=== PATIENT | female | born 1955 | race Caucasian/White ===

== ENCOUNTER 2021-11-27 05:00 | Inpatient (IN) | payer SELFPAY ==
[2021-11-27] VITALS (11 sets, daily range): BP systolic 127–150; BP diastolic 83–110; PULSE 83–152; RESP 18–20; TEMP 36.3–37.2; O2SAT 94–99
--- NOTE | 2021-11-27 04:59 | HP.PCM.HOS_ITS ---
HPI - General General Date of Admission: 11/27/21 Date of Service: 11/27/21 Chief Complaint: Elevated troponin HPI Narrative SIMI JARAMILLO, is a 66 F who presents from [place] [facility] with elevated troponin. Patient has history of COPD and GERD. She has not been vaccinated against COVID-19. She presents with a 2-week history of progressive shortness of breath. She thought it was due to her COPD exacerbation. Patient denied any sick contact. Denied any fever or chills. She admits to some chest tightness. In [place] ED, her vitals were stable. Initial troponin was 0.09, next troponin is 0.41 CMP was unremarkable, BUN was 16, creatinine 0.63. UA was also unremarkable. EKG showed normal sinus rhythm, no acute ST-T changes. Chest x- ray shows no acute cardiopulmonary process COVID-19 PCR was positive. PFSH Medical History Asthma delivery affecting Chest pain Cholecystectomy planned COPD (chronic obstructive pulmonary disease) Former smoker GERD (gastroesophageal reflux disease) Hypertension Hypertension Knee arthropathy Rheumatoid arthritis Smoker Home Medications Prilosec 11/27/21 [History Last Taken Unknown] albuterol sulfate 11/27/21 [History Last Taken Unknown] lisinopril 11/27/21 [History Last Taken Unknown] naproxen sodium mg 11/27/21 [History Last Taken Unknown] Allergy/AdvReac Type Severity Reaction Status Date / Time codeine Allergy NEEDS Verified 11/27/21 05:13 FOLLOW-UP morphine Allergy NEEDS Verified 11/27/21 05:13 FOLLOW-UP Penicillins Allergy NEEDS Verified 11/27/21 05:13 FOLLOW-UP Sulfa (Sulfonamide Allergy NEEDS Verified 11/27/21 05:13 Antibiotics) FOLLOW-UP Family History (Updated 11/27/21 @ 07:[address] Chrissy Dawn MD) Father CVA (cerebral vascular accident) Mother CVA (cerebral vascular accident) Other Bipolar 1 disorder Diabetes Myocardial infarction Social History (Updated 11/27/21 @ 07:[address] Chrissy Dawn MD) household members: spouse Smoking Status: Former smoker alcohol intake: never substance use type: does not use ROS ROS Narrative Constitutional: Denies: Anorexia, Chills, Fever, Night Sweats, Weight Change Eyes: Denies: Blurred vision, Cataracts, Conjunctivae Inflammation, Pain, Redness, Vision Change HEENT: Denies: Difficulty Hearing, Difficulty Swallowing, Head Aches, Hearing Changes, Sinus Congestion, Sinus Drainage Cardiovascular: Denies: Chest Pain, Orthopnea, Palpitations Respiratory: Denies: Cough, Shortness of breath at rest, Sputum production Gastrointestinal: Denies: Abdominal Pain, Nausea, Vomiting Genitourinary: Denies: Dysuria Musculoskeletal: Denies: Joint Pain, Joint stiffness, Joint swelling, Joint Tenderness Skin: Denies: Rash, Wounds Neurological: Denies: Numbness, Tingling, Focal weakness Physical Exam Narrative Physical exam: General: Alert, Oriented x3, Cooperative, No apparent distress, cachectic, not on oxygen HEENT: Atraumatic Oral: Moist Mucosa Neck: Supple Lungs: Diminished to auscultation Cardiovascular: HS I+II, regular, no murmurs Abdomen: Bowel Sounds Present, Soft, Non Tender Extremities: No edema Results Lab / Micro Data Result Diagrams: 11/27/21 05:40 11/27/21 05:40 Assessment & Plan Assessment/Plan (1) COVID: (2) Elevated troponin: PLAN: 1. Acute non-STEMI, unclear etiology for now EKG shows sinus tachycardia, no acute ST-T changes Patient presents with newly diagnosed Covid Check D-dimer, CTA of the chest to rule out PE Continue on aspirin, statin, carvedilol Continue heparin drip started Discontinue carvedilol, statin, aspirin if cardiac etiology is not suspected 2. COVID-19 infection without hypoxia, newly diagnosed Patient is unvaccinated Symptoms started more than 2 weeks ago Start patient on IV dexamethasone, check Bnpep, lactic acid, D-dimer Albuterol as needed 3. Hypertension, controlled, continue lisinopril 4. GERD, continue PPI 5. DVT prophylaxis?heparin drip Charges/Coding Visit Charges Inpatient E&M: 81223 Init Hosp L3
[2021-11-27] MEDS: Ipratropium/Albuterol Sulfate 3 ML AMPUL.NEB INHALATION (05:55)
[2021-11-27 06:24] LABS: ALB/GLOB Ratio 0.9 RATIO (0.9-2.4); AST(SGOT) 26 U/L (15-37); Alanine Aminotransfer ALT/SGPT 19 U/L (13-56); Albumin, Serum 3.6 g/dL (3.2-5.0); Alkaline Phosphatase 102 U/L (45-117); Anion Gap 7 (5-15); BUN 13 mg/dL (7-18); BUN/Creat Ratio 18.6 RATIO (10-20); Calcium,Total 9.3 mg/dL (8.5-10.1); Chloride 105 mmol/L (98-107); EST Glomerular Filtration Rate 89 mL/min (>60); Est Glom Filt Rate - Afr Amer 108 mL/min (>60); Estimated Creatinine Clearance 69.32 ml/min; Glucose 140 mg/dL (74-106); Potassium 4.1 mmol/L (3.5-5.1); Protein, Total 7.6 g/dL (6.4-8.2); Sodium Level 138 mmol/L (136-145); Troponin-I HS 905 pg/mL (3.0-54.0)
[2021-11-27 06:38] LABS: Absolute Lymphocyte Count 0.74 X10^3/uL (0.83-4.51); Basophil# 0.02 X10^3/uL; Basophil% 0.3 % (0-1); Hematocrit 38.3 % (37-47); Hemoglobin 12.4 g/dL (12.0-15.0); Lymphocyte # 0.74 X10^3/ul (0.83-4.51); Lymphocyte % 12.6 % (19-41); Mean Corp Hgb Conc 32.4 g/dL (32-36); Mean Corpuscular Hgb 25.3 pg (27.0-32.0); Mean Corpuscular Volume 78.2 fL (81-99); Mean Platelet Vol. 11.2 fl (6.2-12.0); Monocyte# 0.06 X10^3/uL; NRBC Flagged by Analyzer 0 % (0-5); Neutrophil # 5.01 X10^3/uL (2.7-7.7); Neutrophil % 85.8 % (47-70); POSITIVE COUNT YES; Platelet Count 284 K/mm3 (150-450); RBC Distribution Width CV 15.6 % (11.6-14.6); RBC Distribution Width SD 43.8 fl (35.1-43.9); White Blood Count 5.9 K/mm3 (4.4-11.0)
[2021-11-27 06:39] LABS: Differential Indicated SCAN CRITERIA MET
[2021-11-27 06:51] LABS: D-Dimer Quantitative (DVT/PE) 0.57 FEU/ug/m (0.27-0.49)
[2021-11-27 06:55] LABS: Differential Comment SCANNED; Platelet Estimate ADEQUATE (ADEQ)
--- NOTE | 2021-11-27 06:59 | CT_ITS ---
STUDY: CTA CHEST REASON FOR EXAM: Female, 66 years old. Chronic shortness of breath Covid hypertension and former smoker RADIATION DOSAGE (If Supplied By Facility): CTDIvol = ( 5.57 ) mGy, DLP = ( 197.74 ) mGycm TECHNIQUE: The examination was performed with the intravenous administration of IV 75mL Isovue-370. Post-processing of the angiographic images was performed, with multiplanar reformation and 3D reconstruction. Individualized dose optimization techniques were used for this CT. COMPARISON: None. FINDINGS: There is no acute or chronic pulmonary embolism. Aorta is of normal caliber. Coronary arteries are moderately to severely diseased with calcified plaque. Lungs are severely emphysematous without focal or regional opacities. There is no pulmonary edema or pleural effusions. Skeleton is intact. The stomach is not fully distended and difficult to evaluate. However, there is probably gastric wall thickening versus food coating. There is a benign right adrenal 2.5 cm adenoma not requiring further diagnostic imaging. There is an exophytic incompletely evaluated right renal upper pole lesion. CT/CTA Chest W/WO Contrast IMPRESSION: 1. No pulmonary embolism. 2. Severe emphysema. 3. Moderate to severe coronary artery disease. 4. Right renal lesion, incompletely characterized, recommend ultrasound for further evaluation. 5. Possible gastric wall thickening. In a high risk patient, such a smoker further investigations are advised to exclude malignancy. Electronically Signed: Erica Zapata MD at 9:52 EST ,
[2021-11-27 07:37] LABS: Cholesterol 183 mg/dL (200); High Density Lipoprotein 58 mg/dL; Triglycerides 65 mg/dL; Troponin-I HS 1098 pg/mL (3.0-54.0); Very Low Density Lipoprotein 13 mg/dL (5-40)
[2021-11-27 07:50] LABS: Partial Thromboplast Time 30.2 Seconds (24.1-36.2)
[2021-11-27 07:57] LABS: Lactic Acid 2.1 mmol/L (0.4-1.9)
[2021-11-27] MEDS: Carvedilol 3.125 MG TABLET PO (08:07)
[2021-11-27] MEDS: Aspirin 81 MG TAB.CHEW PO (08:07)
[2021-11-27] MEDS: Heparin Injection (Vial) 5,000 UNIT/ML VIAL IV ×2 (08:07→23:21)
[2021-11-27] MEDS: dexAMETHasone 10 MG/ML Vial 6 MG IV (08:07)
--- NOTE | 2021-11-27 10:08 | US_ITS ---
STUDY: RENAL ULTRASOUND - COMPLETE REASON FOR EXAM: Female, 66 years old. Evaluate right renal lesion seen on recent CT scan. TECHNIQUE: Ultrasound evaluation of the kidneys was performed with real-time and static william-scale imaging. COMPARISON: Recent CT scan of the abdomen of 2021. FINDINGS: RIGHT KIDNEY: Normal location of the right kidney, which is normal in size. The right kidney measures 9.3 x 4.5 x 3 cm. There is a normal cortex of the right kidney. The renal cortex measures 1 cm. There is a cyst in the upper pole of the right kidney measuring about 2.3 x 2.3 x 2 [address] abnormality. There are no right renal calculi. There is mild hydronephrosis of the right kidney. DISTAL RIGHT URETER: There is non-visualization of the distal right ureter. There is no demonstrated right ureterovesical junction calculus. There is no demonstrated right ureteral jet. LEFT KIDNEY: Normal location of the left kidney, which is normal in size. The left kidney measures 11.1 x 4.4 x 4.5 cm. There is a normal cortex of the left kidney. The renal cortex measures 1.2 cm. There is no left renal mass or cyst. There are no left renal calculi. There is no left hydronephrosis. DISTAL LEFT URETER: There is non-visualization of the distal left ureter. There is no demonstrated left ureterovesical junction calculus. There is no demonstrated left ureteral jet. BLADDER: The distended urinary bladder has a volume of 214 ml. US/Kidney and Bladder IMPRESSION: Cyst in the upper pole of the right kidney appears to be simple and corresponding to the CT abnormality. Mild right hydronephrosis. Electronically Signed: Dada Martinez, at 15:07 EST ,
[2021-11-27 10:42] LABS: Hemoglobin A1c 5.6 % (3.8-5.6)
[2021-11-27 11:02] LABS: BNP,B-Type NATRIURETIC PEPTIDE 117.3 pg/mL (0-100)
--- NOTE | 2021-11-27 11:30 | CASEMGMT ---
RN CM called patient in room for initial transition planning/care coordination assessment. RN JUSTIEC introduced self and role at [facility]. Patient alert and oriented. Patient willing to participate in assessment and is able to answer all questions appropriately. Care providers, pharmacy, and demographics verified. Patient wishes to discharge home, denies need for home health at this time. Patient states she has no further needs or concerns at this time. CM to follow for discharge planning needs that may arise. PCP: Daniel Specialists: none Preferred Pharmacy: [facility] Insurance: none, in the process of signing up for [facility] Prescription Benefit: none Living Will/HPOA: none LNOK: Living Arrangements: Patient lives with in a single story home with 2 steps and railing to enter the home. Transportation: DME/HHC: Patient states she has nebulizer at home. Patient provided with list of DME and would like [employer]. Currently on room air, will monitor for home oxygen, green sheet on chart. Patient denies previous HHC or SNF Disposition Plan: Patient to discharge home with family support and follow-up plans in place. Kaela LAKE, RN, CM
[2021-11-27 11:32] LABS: Reflex Lactate? Y
[2021-11-27 12:48] LABS: Lactic Acid 1.1 mmol/L (0.4-1.9)
[2021-11-27 12:53] LABS: Troponin-I HS 1372 pg/mL (3.0-54.0)
--- NOTE | 2021-11-27 13:00 | PN.HOSP_ITS ---
Hospitalist Note Patient admitted early this morning as a transfer from outside hospital for NSTEMI and further cardiac evaluation. Unfortunately she was found to be COVID- 19 positive on admission. She was nonvaccinated and currently stable on room air. Her oxygen saturations are 95 to 99%. A CTA of her chest was performed and it was negative for pulmonary embolism however showed severe emphysematous changes, moderate to severe coronary artery disease, a right renal lesion for which an ultrasound was recommended and possible gastric wall thickening. Renal ultrasound is pending to further evaluate the right renal lesion. I discussed the case with cardiology and given the fact that she is COVID-19 positive at this time they would like to defer cardiac testing including stress test or left heart cath until she is 14 days out of her acute Covid infection. They recommended that we continue her aspirin, beta-tristan, statin that we have already initiated and add Plavix 75 mg daily. I have restarted her home lisinopril. She also is on a heparin drip which they would like to maintain for the next 24 hours. Patient is currently asymptomatic both with regards to COVID-19 and denies any current chest pain. Per discussion with cardiology if she maintains stability in the next 24 hours we should be able to discharge her home with recommended outpatient follow-up. Patient was not vaccinated for COVID-19. Diagnoses: NSTEMI COPD Possible gastric wall thickening-we will refer for outpatient follow-up with Dr. Kim Right renal lesion Hypertension Hyperlipidemia Tobacco abuse GERD
--- NOTE | 2021-11-27 13:54 | PCM.CONS.C ---
Assessment & Plan Assessment/Plan (1) Elevated troponin: PLAN: This could be type II NV secondary to Covid. However it is reasonable to treat her medically with aspirin, Plavix, beta-tristan, statin and heparin for 24 hours. If she continues to remain asymptomatic then she could potentially be discharged home tomorrow. In about 2 weeks she would benefit from coronary angiography. She can follow-up with cardiology as an outpatient. (2) COVID: HPI Consult Data Date of Consult: 11/27/21 HPI Narrative HPI Narrative: SIMI JARAMILLO, is a 66 F who presents with shortness of breath. She had presented to [facility] and was diagnosed with Covid. She was transferred here because her troponin was elevated. Her troponin upon arrival was around 900 and has gone up to around 1300. Patient denies any chest pain. She has been having shortness of breath for about 2 weeks. Review of systems: All systems reviewed. All else is negative except that in the HPI PFSH Medical History Asthma delivery affecting Chest pain Cholecystectomy planned COPD (chronic obstructive pulmonary disease) Former smoker GERD (gastroesophageal reflux disease) Hypertension Hypertension Knee arthropathy Rheumatoid arthritis Smoker Home Medications Prilosec 20 mg PO/SL DAILY 11/27/21 [History Last Taken Unknown] albuterol sulfate INHALATION Q4H 11/27/21 [History Last Taken Unknown] lisinopril [Zestril] 40 mg PO DAILY 11/27/21 [History Last Taken Unknown] naproxen sodium mg 11/27/21 [History Last Taken Unknown] Allergy/AdvReac Type Severity Reaction Status Date / Time codeine Allergy NEEDS Verified 11/27/21 05:13 FOLLOW-UP morphine Allergy NEEDS Verified 11/27/21 05:13 FOLLOW-UP Penicillins Allergy NEEDS Verified 11/27/21 05:13 FOLLOW-UP Sulfa (Sulfonamide Allergy NEEDS Verified 11/27/21 05:13 Antibiotics) FOLLOW-UP Family History (Updated 11/27/21 @ 07:[address] Chrissy Dawn MD) Father CVA (cerebral vascular accident) Mother CVA (cerebral vascular accident) Other Bipolar 1 disorder Diabetes Myocardial infarction Social History (Updated 11/27/21 @ 07:[address] Chrissy Dawn MD) household members: spouse Smoking Status: Former smoker alcohol intake: never substance use type: does not use Risk Stratification Risk Stratification Applicable: No Objective Data Vital Signs: Vital Signs Temp Pulse Resp BP Pulse Ox 97.3 F L 99 18 144/97 H 95 11/27/21 08:03 11/27/21 08:03 11/27/21 08:03 11/27/21 08:03 11/27/21 08:03 Oxygen Delivery Method Room Air Weight: 120 lb 13.013 oz Body Mass Index (BMI) 20.0 Intake & Output: Intake and Output for Last 24 Hours 11/25/21 11/26/21 11/27/21 23:59 23:59 23:59 Intake Total 12.10.04 Output Total 0 / 0 Balance .10.04 Lab / Micro Data Result Diagrams: 11/27/21 05:40 11/27/21 05:40 Labs: Laboratory Results - last 24 hr 11/27/21 05:40: WBC 5.9, RBC 4.90, Hgb 12.4, Hct 38.3, MCV 78.2 L, MCH 25.3 L, MCHC 32.4, RDW Std Deviation 43.8, RDW Coeff of Hernandez 15.6 H, Plt Count 284, MPV 11.2, Immature Gran % (Auto) 0.300, Neut % (Auto) 85.8 H, Lymph % (Auto) 12.6 L, Bleckley % (Auto) 1.0, Eos % (Auto) 0.0, Baso % (Auto) 0.3, Absolute Neuts (auto) 5.0, Absolute Lymphs (auto) 0.74 L, Nucleated RBC % 0, Differential Comment SCANNED, Platelet Estimate ADEQUATE 11/27/21 05:40: Sodium 138, Potassium 4.1, Chloride 105, Carbon Dioxide 26.0, Anion Gap 7, BUN 13, Creatinine 0.70, Estim Creat Clear Calc 69.32, Est GFR (MDRD) Af Amer 108, Est GFR (MDRD) Non-Af 89, BUN/Creatinine Ratio 18.6, Glucose 140 H, Calcium 9.3, Total Bilirubin 0.30, AST 26, ALT 19, Alkaline Phosphatase 102, Troponin I High Sens 905 H*, Total Protein 7.6, Albumin 3.6, Globulin 4.0, Albumin/Globulin Ratio 0.9 11/27/21 05:40: Hemoglobin A1c 5.6 11/27/21 05:40: D-Dimer Quant (PE/DVT) 0.57 H* 11/27/21 05:40: B-Natriuretic Peptide 117.3 H 11/27/21 06:50: Troponin I High Sens 1098 H*, Triglycerides 65, Cholesterol 183, LDL Cholesterol 112, VLDL Cholesterol 13, HDL Cholesterol 58 11/27/21 06:55: Lactic Acid 2.1 H* 11/27/21 06:55: APTT 30.2 11/27/21 12:09: Troponin I High Sens 1372 H* 11/27/21 12:09: Lactic Acid 1.1 Micro: Microbiology 11/27/21 08:19 Urine, Random Streptococcus pneumoniae Antigen (M - Final 11/27/21 08:15 Urine, Clean Catch Legionella Antigen - Final Cardiology Labs/Tests 11/27/21 05:40: WBC 5.9, RBC 4.90, Hgb 12.4, Hct 38.3, MCV 78.2 L, MCH 25.3 L, MCHC 32.4, Plt Count 284, MPV 11.2, Immature Gran % (Auto) 0.300, Neut % (Auto) 85.8 H, Lymph % (Auto) 12.6 L, Bleckley % (Auto) 1.0, Eos % (Auto) 0.0, Baso % (Auto) 0.3, Absolute Neuts (auto) 5.0, Nucleated RBC % 0 11/27/21 05:40: Sodium 138, Potassium 4.1, Chloride 105, Carbon Dioxide 26.0, Anion Gap 7, BUN 13, Creatinine 0.70, Est GFR (MDRD) Af Amer 108, Est GFR (MDRD) Non-Af 89, BUN/Creatinine Ratio 18.6, Glucose 140 H, Calcium 9.3, Total Bilirubin 0.30 11/27/21 05:40: Hemoglobin A1c 5.6 11/27/21 05:40: D-Dimer Quant (PE/DVT) 0.57 H* 11/27/21 05:40: B-Natriuretic Peptide 117.3 H 11/27/21 06:50: Triglycerides 65, Cholesterol 183, LDL Cholesterol 112, VLDL Cholesterol 13, HDL Cholesterol 58 11/27/21 06:55: Lactic Acid 2.1 H* 11/27/21 06:55: APTT 30.2 11/27/21 12:09: Lactic Acid 1.1 Rhythm: EKG: ECHO: Stress Test: Cardiac Cath: PCI: CT Surgery: Holter monitor: EPS: PPM: CXR: Chest CT Scan: Radiography Diagnostic Testing: Radiology Impression Chest CTA 11/27/21 06:59 IMPRESSION: 1. No pulmonary embolism. 2. Severe emphysema. 3. Moderate to severe coronary artery disease. 4. Right renal lesion, incompletely characterized, recommend ultrasound for further evaluation. 5. Possible gastric wall thickening. In a high risk patient, such a smoker further investigations are advised to exclude malignancy. Electronically Signed: Erica Zapata MD at 9:52 EST ,
[2021-11-27] MEDS: Lisinopril 40 MG Tablet PO (14:34)
[2021-11-27] MEDS: Pantoprazole Sodium 20 MG Tablet PO (14:34)
[2021-11-27] MEDS: INHALER, ASSIST DEVICES 1 EACH SPACER INHALATION (15:49)
[2021-11-27 16:16] LABS: Partial Thromboplast Time 55.6 Seconds (24.1-36.2)
[2021-11-27] MEDS: Carvedilol 6.25 MG Tablet PO (17:35)
[2021-11-27] MEDS: Atorvastatin Calcium 40 MG Tablet PO (22:13)
[2021-11-27] MEDS: 0.9% Saline Lock 10 ML Syringe IV (22:16)
[2021-11-27 22:36] LABS: Partial Thromboplast Time 54.3 Seconds (24.1-36.2)
[2021-11-28 03:00] VITALS: PULSE 100
[2021-11-28 04:20] VITALS: BP 135/94; PULSE 84; RESP 18; TEMP 36.6; O2SAT 94
[2021-11-28 04:26] VITALS: O2SAT 94
[2021-11-28 06:32] VITALS: PULSE 76
[2021-11-28 07:07] LABS: Partial Thromboplast Time 67.2 Seconds (24.1-36.2)
[2021-11-28 08:22] VITALS: BP 137/88; PULSE 80; RESP 18; TEMP 36.9; O2SAT 95
[2021-11-28] MEDS: Lisinopril 40 MG Tablet PO (08:23)
[2021-11-28] MEDS: Carvedilol 6.25 MG Tablet PO (08:23)
[2021-11-28] MEDS: Pantoprazole Sodium 20 MG Tablet PO (08:24)
[2021-11-28] MEDS: Clopidogrel Bisulfate 75 MG Tablet PO (08:24)
[2021-11-28] MEDS: dexAMETHasone 10 MG/ML Vial 6 MG IV (08:25)
[2021-11-28] MEDS: Aspirin 81 MG TAB.CHEW PO (08:25)
[2021-11-28] MEDS: INHALER, ASSIST DEVICES 1 EACH SPACER INHALATION (08:26)
--- NOTE | 2021-11-28 12:33 | DS.PCM_ITS ---
Providers Date of Admission: 11/27/21 Primary Care Physician: Dr. Daniele Sanchez MD Consultations 11/27/21 07:02 Consult: Cardiology Routine Consulting Provider: Humphrey Dunn Reason for Consult: Elevated troponin EMERGENT Consult: No MD Notified: Yes Date Notified: 11/27/21 Time Notified: 07:02 Method of Notification: Text Reason For Visit: NSTEMI Diagnosis Discharge Diagnosis (1) Elevated troponin: Status: Acute Code(s): R77.8 - Other specified abnormalities of plasma proteins (2) COVID: Status: Acute Code(s): U07.1 - COVID-19 Medications at Discharge Home Medications Prilosec 20 mg PO/SL DAILY 11/27/21 albuterol sulfate INHALATION Q4H 11/27/21 lisinopril [Zestril] 40 mg PO DAILY 11/27/21 naproxen sodium mg 11/27/21 aspirin 81 mg PO BREAKFAST #30 tab 11/28/21 atorvastatin 40 mg PO QHS #30 tab 11/28/21 carvedilol 6.25 mg PO BIDCM #60 tab 11/28/21 clopidogrel 75 mg PO DAILY #30 tab 11/28/21 dexamethasone [Decadron] 6 mg PO DAILY #8 tab 11/28/21 Hospital Course Operations None Procedures None Summary of Care Provided Minutes Spent on Discharge: 38 Hospital Course: Mrs. Eller is a 66-year-old white female who presented to [place] emergency department with elevated troponin. She has a known history of COPD and GERD and had not been vaccinated against COVID-19. She presented with a 2-week history of progressive shortness of breath and actually thought it was due to a COPD exacerbation. On admission she denied having any sick contacts, any fever or chills, no nausea or diarrhea, no is nausea or dysgeusia and reports she felt fine other than some intermittent chest tightness. In the [place] emergency department her vital signs were stable and her initial troponin was elevated at 0.9 with a repeat to 0.41 the rest of her lab work was unremarkable. An EKG showed normal sinus rhythm is without any ST-T wave changes and her chest x-ray showed no acute cardiopulmonary processes. A rapid Covid test was performed and was found to be positive. She was transferred to this institution given her elevated troponins. High-sensitivity troponins were cycled here and found to be 905, 1098, and having a peak of 1372. She had no ongoing chest pain while she was hospitalized and felt that her respiratory status was stable. She remained on room air during her entire hospitalization with oxygen saturations at 94 to 97%. She was placed on Decadron while admitted given her COVID-19 positivity and initiated on a heparin drip just after transfer. A CTA of her chest was performed and was negative for pulmonary embolism but does show extensive emphysema, coronary artery calcifications, and demonstrated a renal lesion. The renal lesion was further evaluated by a renal ultrasound which showed a simple cyst. She was evaluated by cardiology and they felt that it could possibly be a type II NSTEMI secondary to her Covid infection however with her CT showing coronary calcifications they felt that it was reasonable to medically treat her with aspirin, Plavix, beta-tristan, statin and heparin for 24 hours and discharge her on above outpatient oral therapies with the exclusion of heparin and have continued cardiac follow-up as an outpatient after she had completed quarantine if she remains stable. She was initiated on Hocqr-eea-tiod, atorvastatin, aspirin and Plavix and maintained on her home lisinopril. She had no further chest pain and it was recommended she follow-up after quarantine was completed on 12/06/2021 with cardiology as an outpatient for probable left heart catheterization. The plan of care was reviewed with her and she voiced understanding. She was instructed to call the cardiology office on Monday morning to schedule appointment after she completed quarantine. She was also instructed to follow-up with her primary care physician at that time as well. Her ultrasound of her kidney did show some mild hydronephrosis however the patient has had no urinary symptoms whatsoever and states that she has been urinating normally without difficulty. Her serum creatinine was normal. She was discharged home in stable condition on the above medications in addition to Decadron 6 mg daily to complete a total of 10 days. 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 She is not amenable to vaccination for COVID-19 when she is out of quarantine. Discharge diagnoses: NSTEMI COVID-19 infection Renal cyst Mild hydronephrosis COPD with emphysematous changes on CAT scan Hypertension Hyperlipidemia Physical Exam Const alert, oriented x3, no apparent distress and average body habitus Constitutional Narrative: Upper middle-aged white female who appears much older than stated age, sitting on the edge of the bed, talking in the telephone, appears comfortable nontoxic General Appearance: cooperative, comfortable, well kempt and well developed Orientation / Consciousness: awake Exam Limitations: no limitations HEENT normocephalic, head/scalp atraumatic, hearing grossly normal bilaterally and moist oral mucous membranes HEENT Narrative: Dentures in place, Mallampati 2, no thrush Eyes PERRL, EOMs intact bilaterally and conjunctivae normal Eyes Narrative: No scleral icterus Neck no lymphadenopathy, supple and no JVD Neck Narrative: Trachea mid, no thyroid enlargement Resp normal respiratory effort, no retractions and no use of accessory muscles Resp Narrative: Diffusely diminished with scattered end expiratory wheezes that improved with cough Auscultation: wheezes; Negative for crackles, rales or rhonchi Cardio regular rate, regular rhythm, S1 normal heart sound, S2 normal heart sound, no murmurs, no rub, no gallops, no clicks and no JVD GI normal to inspection, nondistended, normoactive bowel sounds, soft to palpation, non-tender and non-distended Extremity no clubbing, cyanosis or edema Extremity Narrative: 2+ pedal pulses Skin no rashes or lesions noted, no wounds, skin turgor normal and no jaundice Neuro oriented x3, CN's II-XII intact bilaterally, moves all extremities, no focal motor deficits and no sensory deficits noted Sensorium / Orientation: awake and alert Motor Exam: strength 5/5 throughout Psych affect normal Psych Narrative: Very pleasant and jovial Weight / BMI Weight Weight: 54.4 kg Body Mass Index (BMI) 20.0 ABG / Lab / Microbiology Data Result Diagrams: 11/27/21 05:40 11/27/21 05:40 Laboratory: Laboratory Results - last 24 hr 11/27/21 12:09: Troponin I High Sens 1372 H* 11/27/21 12:09: Lactic Acid 1.1 11/27/21 15:45: APTT 55.6 H 11/27/21 21:45: APTT 54.3 H 11/28/21 05:21: APTT 67.2 H Microbiology: Microbiology 11/27/21 08:19 Urine, Random Streptococcus pneumoniae Antigen (M - Final 11/27/21 08:15 Urine, Clean Catch Legionella Antigen - Final Radiography Diagnostic Testing: Radiology Impression Renal Ultrasound 11/27/21 10:08 IMPRESSION: Cyst in the upper pole of the right kidney appears to be simple and corresponding to the CT abnormality. Mild right hydronephrosis. Electronically Signed: Dada Martinez, at 15:07 EST , D/C Instructions Discharge Diet: Low fat / Low cholesterol Return to work on: 12/07/21 Meaningful Use Info Meaningful Use Diagnoses (Choose all that apply): None applicable Discharge Plan Admission Admit Date/Time: 11/27/21 05:00 Primary Reason for Your Visit: Chest Pressure Attending Provider: Stephanie Pete Primary Care Provider: Daniele Sanchez Consulting Providers: Humphrey Dunn Instructions Additional Instructions / Restrictions: 1. Please self quarantine until 12/06/2021 secondary to COVID-19 infection 2. Please call cardiology office on 11/29/2021 for an appointment after quarantine has been completed for further outpatient testing with regards to your heart Discharge Orders/Prescriptions Prescriptions: New aspirin 81 mg Tablet,Chewable 81 mg PO BREAKFAST Qty: 30 RF: 0 atorvastatin 40 mg Tablet 40 mg PO QHS Qty: 30 RF: 0 carvedilol 6.25 mg Tablet 6.25 mg PO BIDCM Qty: 60 RF: 0 clopidogrel 75 mg Tablet 75 mg PO DAILY Qty: 30 RF: 0 dexamethasone [Decadron] 6 mg tablet 6 mg PO DAILY Qty: 8 RF: 0 Continued albuterol sulfate 2.5 mg /3 mL (0.083 %) solution for nebulization inhalation Q4H RF: 0 naproxen sodium 550 mg tablet RF: 0 lisinopril [Zestril] 40 mg tablet 40 mg PO DAILY RF: 0 Prilosec 20 mg PO/SL DAILY RF: 0 Referrals / Follow Up: Humphrey Dunn MD [STAFF PHYSICIAN] - Within 2 Weeks (after 12/06/2021) Daniele Sanchez MD [Primary Care Provider] - Within 2 Weeks Disposition Disposition (needs filled in before D/C Order can be placed): Home, Self Care Charges/Coding Visit Charges Inpatient E&M: 83751 Disch Hosp
== END 2021-11-28 14:42 | disposition home or self-care (01) | DRG 280 ==
PROVIDERS: Specialist; Admitting Provider Internal Medicine; PCP Family Medicine; Visit Provider Internal Medicine
DX: I21.A1 Myocardial infarction type 2 (principal); U07.1 COVID-19; N13.30 Unspecified hydronephrosis; J43.9 Emphysema, unspecified; I25.10 Atherosclerotic heart disease of native coronary artery without angina pectoris; I10 Essential (primary) hypertension; E78.5 Hyperlipidemia, unspecified; K21.9 Gastro-esophageal reflux disease without esophagitis; K31.89 Other diseases of stomach and duodenum; N28.1 Cyst of kidney, acquired; Z79.02 Long term (current) use of antithrombotics/antiplatelets; Z79.899 Other long term (current) drug therapy; Z79.82 Long term (current) use of aspirin; Z87.891 Personal history of nicotine dependence
CPT/HCPCS: 36415; 71275; 76770; 80053; 80061; 83036; 83605; 83880; 84484; 85025; 85379; 85730; 87449; 94640; 97802; Q9967; A4216

== ENCOUNTER 2024-06-23 04:55 | Inpatient (IN) | payer MEDICARE, SELFPAY ==
[2024-06-23] VITALS (7 sets, daily range): BP systolic 116–134; BP diastolic 66–91; PULSE 82–113; RESP 18; TEMP 36.7–36.8; O2SAT 94–100; BMI 23.8
--- NOTE | 2024-06-23 04:43 | HP.PCM.HOS_ITS ---
HPI - General General Date of Admission: 06/23/24 Date of Service: 06/23/24 Chief Complaint: SOB and Wheezing. HPI Narrative SIMI ELLER, is a 69 F with a past medical history of essential hypertension, hyperlipidemia, history of tobacco abuse (quit ~2014); with subsequent asthma/COPD, chronic hypoxic respiratory failure; on 4L NC continuously, CAD; s/p NSTEMI still on BASA (but recently taken off Plavix), listed allergy to Morphine/PCN and Sulfa, history of COVID-19, GERD, RA and OA who presents to [facility] ER complaining of SOB and wheezing. Ms. Eller reports her symptoms began approximately 2 days prior to admission with the gradual-onset of progressively worsening ELIZALDE that progressed to SOB at rest. She also admits to wheezing and congested but nonproductive cough that was not responsive to an increase in her nebulizers and supplemental oxygen. She denies associated fever, chills, nausea, vomiting, diarrhea, chest pain or palpitations. She was then diagnosed with AE COPD with clinical evidence of Gzdqw-fd-Ylgeeyp Respiratory Insufficiency complicated by CT evidence of an ~1.6 cm spiculate lesion in her RLL with repeat imaging recommended in 3-6 months with her ER physician at [facility] contacting me for transfer to this facility due to lack of bed availability there. She was then admitted to the PCU here for ongoing care for a stay that is expected to extend beyond 2 midnights. [facility] Medical History NSTEMI (non-ST elevated myocardial infarction) Elevated troponin COVID Knee arthropathy Cholecystectomy planned delivery affecting Rheumatoid arthritis GERD (gastroesophageal reflux disease) Former smoker Smoker Asthma COPD (chronic obstructive pulmonary disease) Chest pain Hypertension Hypertension Home Medications ?Medication ?Instructions ?Recorded ?Last Taken ?Type albuterol sulfate 2.5 mg/3 mL inhalation Q4H sob 11/27/21 Unknown History (0.083 %) solution for nebulization lisinopril 40 mg tablet (Zestril) 40 mg PO DAILY blood pressure 11/27/21 Unknown History aspirin 81 mg chewable tablet 81 mg PO BREAKFAST #30 tabs 11/28/21 Unknown Rx amlodipine 5 mg tablet 5 mg PO DAILY 01/10/22 Unknown History atorvastatin 40 mg tablet 40 mg PO QHS #30 tabs 01/10/22 Unknown Rx carvedilol 6.25 mg tablet 12.5 mg PO BID 01/10/22 Unknown History clopidogrel 75 mg tablet 75 mg PO DAILY #30 tabs 01/10/22 Unknown Rx esomeprazole magnesium 20 mg 20 mg PO DAILY 01/10/22 Unknown History capsule,delayed release (Nexium 24HR) nitroglycerin 0.4 mg sublingual 0.4 mg sublingual Q5-15M PRN chest 01/10/22 Unknown Rx tablet pain #25 tabs Allergy/AdvReac Type Severity Reaction Status Date / Time codeine Allergy NEEDS Verified 01/10/22 10:43 FOLLOW-UP morphine Allergy NEEDS Verified 01/10/22 10:43 FOLLOW-UP Penicillins Allergy NEEDS Verified 01/10/22 10:43 FOLLOW-UP Sulfa (Sulfonamide Allergy NEEDS Verified 01/10/22 10:43 Antibiotics) FOLLOW-UP Family History Father CVA (cerebral vascular accident) Mother CVA (cerebral vascular accident) Other Bipolar 1 disorder Diabetes Myocardial infarction Social History household members: spouse Smoking Status: Former smoker alcohol intake: never substance use type: does not use ROS ROS Narrative Review of Systems: Constitutional: Patient denies fever or chills. Eyes: Patient denies changes in vision or discharge from eyes. ENT: Patient denies runny nose, sore throat or ear pain. Resp: Patient admits to ELIZALDE that progressed to SOB at rest with wheezing and increasingly frequent with nonproductive cough. CV: Patient denies chest pain, palpitations or heart racing. GI: Patient denies abdominal pain, nausea, vomiting, diarrhea or constipation. : Patient denies dysuria, hematuria or urinary hesitancy/frequency. MSK: Patient denies arthralgias and myalgias. Skin: Patient denies rash, abscess, wounds or jaundice. Neuro: Patient denies headache, paresthesias or focal neurologic weakness. Psych: Patient denies symptoms of uncontrolled depression or anxiety. Allergy: Patient denies lip swelling, tongue swelling or urticaria. Hematology: Patient denies easy bleeding or easy bruisability. Endocrinology: Patient denies polyuria, polydipsia or polyphagia. 14 point ROS otherwise negative except for positives noted above in HPI. Vital Signs Vital Signs Vital Signs: VSS Physical Exam Const alert and oriented x3 Constitutional Narrative: Patient appears chronically ill and dyspneic. General Appearance: cooperative HEENT normocephalic, head/scalp atraumatic, hearing grossly normal bilaterally and moist oral mucous membranes Eyes PERRL and EOMs intact bilaterally Neck no lymphadenopathy and supple Resp Resp Narrative: Decreased breath sounds throughout with diffuse expiratory wheezing. Auscultation: wheezes Cardio regular rate and regular rhythm GI normal to inspection, nondistended, normoactive bowel sounds, soft to palpation, non-tender and non-distended Extremity normal to inspection and full ROM Skin Skin Narrative: Patient has no evidence of rash, abscess or jaundice. Neuro oriented x3, CN's II-XII intact bilaterally, moves all extremities and no focal motor deficits Sensorium / Orientation: awake, alert, oriented to person, oriented to place and oriented to time Speech: speech normal Psych affect normal Results Medical Records Data Attestation: I reviewed the patient's medical records Lab / Micro Data Attestation: I reviewed the patient's lab results. Lab results narrative: WBC:5.9 Hgb:10 Plt: 233 BNP: 188 Assessment & Plan Assessment/Plan (1) COPD exacerbation: (2) Respiratory insufficiency: (3) Hypertension: QUALIFIERS: Hypertension type: unspecified Qualified Code(s): I10 - Essential (primary) hypertension (4) Hyperlipidemia: QUALIFIERS: Hyperlipidemia type: unspecified Qualified Code(s): E78.5 - Hyperlipidemia, unspecified (5) History of CAD (coronary artery disease): PLAN: Plan 1. AE COPD with CT positive for an ~1.6 cm x ~1.4 cm RLL spiculated opacity (previously ~2 cm x ~2 cm) - Admit to PCU. Continue IV Solumedrol and empiric IV Doxycycline plus scheduled and prn nebulizers. Give Tylenol prn pain or fever. Finally, we will consult pulmonology to see this patient on-rounds in the AM for further recommendations with help appreciated in advance. 2. Pxrdk-zp-Xdpcoja Hypoxic Respiratory Insufficiency arising from #1 - Wean additional supplemental oxygen as tolerated. 3. Essential hypertension - Maintain home regimen plus give prn IV Hydralazine for systolic blood pressure > 160 mmHg. 4. Hyperlipidemia - Resume statin as before. 5. CAD; s/p NSTEMI - Continue BASA as previous. 6. Listed allergy to Morphine/PCN and Sulfa - Avoid these classes of agent if possible. 7. History of COVID-19 - Noted. Check viral respiratory panel. 8. GERD - Continue PPI. 9. RA - Chronic and stable with no evidence of acute flare at this time. 10. OA - Give Tylenol prn. 11. DVT prophylaxis - Lovenox 40 mg sq daily plus SCD's. Total time: Approximately 55 minutes. Charges/Coding Visit Charges Inpatient E&M: 62049 Init Hosp L2
[2024-06-23] MEDS: MethylPREDNISolone 125 MG/2 ML Vial 60 MG IV (05:55)
[2024-06-23] MEDS: 0.9% Saline Lock 10 ML Syringe IV ×3 (05:55→20:55)
[2024-06-23] MEDS: Doxycycline 100 MG in Dextrose 5%-Water (250mL Bag) 250 ML 250 MG IV (05:57)
[2024-06-23] MEDS: 0.9% Normal Saline (1000mL) 1,000 ML 70 ML IV ×2 (05:58→20:02)
[2024-06-23 07:28] LABS: Absolute Lymphocyte Count 0.78 X10^3/uL (0.83-4.51); Absolute Neutrophil Count 5.3 X10^3/uL (2.0-7.7); Basophil# 0.01 X10^3/uL; Basophil% 0.2 % (0-1); Hematocrit 32.2 % (37-47); Hemoglobin 9.2 g/dL (12.0-15.0); Lymphocyte # 0.78 X10^3/ul (0.83-4.51); Lymphocyte % 12.6 % (19-41); Mean Corp Hgb Conc 28.6 g/dL (32-36); Mean Corpuscular Volume 80.5 fL (81-99); Mean Platelet Vol. 11.7 fl (6.2-12.0); Monocyte# 0.05 X10^3/uL; Monocyte% 0.8 % (0-10); NRBC Flagged by Analyzer 0 % (0-5); Neutrophil % 85.9 % (47-70); POSITIVE MORPHOLOGY YES; Platelet Count 233 K/mm3 (150-450); RBC Distribution Width CV 23.7 % (11.6-14.6); RBC Distribution Width SD 66.8 fl (35.1-43.9); White Blood Count 6.2 K/mm3 (4.4-11.0)
[2024-06-23 07:35] LABS: Differential Indicated SCAN CRITERIA MET
[2024-06-23 08:06] LABS: AST(SGOT) 17 U/L (15-37); Alanine Aminotransfer ALT/SGPT 18 U/L (13-56); Alkaline Phosphatase 60 U/L (45-117); Anion Gap 6 (5-15); BUN 13 mg/dL (7-18); Calcium,Total 8.7 mg/dL (8.5-10.1); Chloride 101 mmol/L (98-107); Creatinine, Serum 0.43 mg/dL (0.55-1.02); EST Glomerular Filtration Rate 154 mL/min (>60); Est Glom Filt Rate - Afr Amer 186 mL/min (>60); Estimated Creatinine Clearance 55.68 ml/min; Globulin 3.1 g/dL (2.2-4.2); Glucose 221 mg/dL (74-106); Phosphorus 2.5 mg/dL (2.5-4.9); Potassium 3.9 mmol/L (3.5-5.1); Protein, Total 6.1 g/dL (6.4-8.2); Sodium Level 136 mmol/L (136-145); Thyroid Stim Hormone (TSH) 0.576 uIU/mL (0.358-3.740)
--- NOTE | 2024-06-23 08:36 | PCM.HOSP.N ---
Hospitalist Note 69-year-old female was directly admitted from [place] ER for acute exacerbation of shortness of breath for 2 days , chest congestion, cannot bring up phlegm and wheezing. 1. AE COPD with CT positive for an ~1.6 cm x ~1.4 cm RLL spiculated opacity/nodule (previously ~2 cm x ~2 cm) - Admit to PCU. [employer] consulted. Patient is being managed on scheduled bronchodilator, IV Solu-Medrol, Mucinex, incentive spirometry and Pep. She follows Dr. Eleno Crawford in the [place]. She had decided a management planner 2. Mild hypoxia with chronic emphysematous changes, bronchiectasis and pleural-parenchymal thickening: CT chest from [place] ER reviewed. It also shows significant emphysematous changes lower lobe bronchiectasis. Mid biapical pleural-parenchymal thickening. There are 2 stable appearing lesion in right upper lobe and nodule in the left lower lobe less than a centimeter. Patient is on 4 L of oxygen, pulse ox 99%. 3. Essential hypertension - Maintain home regimen plus give prn IV Hydralazine for systolic blood pressure > 160 mmHg. 4. Hyperlipidemia - Resume statin as before. 5. CAD; s/p NSTEMI - Continue BASA as previous. 6. Listed allergy to Morphine/PCN and Sulfa - Avoid these classes of agent if possible. 7. History of COVID-19 - Noted. Check viral respiratory panel. 8. GERD - Continue PPI. 9. RA - Chronic and stable with no evidence of acute flare at this time. 10. OA - Give Tylenol prn. 11. DVT prophylaxis - Lovenox 40 mg sq daily plus SCD's. Laboratory Results 06/23/24 07:00: WBC 6.2, RBC 4.00 L, Hgb 9.2 L, Hct 32.2 L, MCV 80.5 L, MCH 23.0 L, MCHC 28.6 L, RDW Std Deviation 66.8 H, RDW Coeff of Hernandez 23.7 H, Plt Count 233, MPV 11.7, Immature Gran % (Auto) 0.500, Neut % (Auto) 85.9 H, Lymph % (Auto) 12.6 L, [place] % (Auto) 0.8, Eos % (Auto) 0.0, Baso % (Auto) 0.2, Absolute Neuts (auto) 5.3, Absolute Lymphs (auto) 0.78 L, Nucleated RBC % 0, Sodium 136, Potassium 3.9, Chloride 101, Carbon Dioxide 29.0, Anion Gap 6, BUN 13, Creatinine 0.43 L, Estim Creat Clear Calc 55.68, Est GFR (MDRD) Af Amer 186, Est GFR (MDRD) Non-Af 154, BUN/Creatinine Ratio 30.0 H, Glucose 221 H, Calcium 8.7, Phosphorus 2.5, Magnesium 2.0, Total Bilirubin 0.20, AST 17, ALT 18, Alkaline Phosphatase 60, Total Protein 6.1 L, Albumin 3.0 L, Globulin 3.1, Albumin/Globulin Ratio 1.0, TSH 0.576
[2024-06-23] MEDS: Aspirin 81 MG TAB.CHEW PO (09:02)
[2024-06-23] MEDS: Lisinopril 40 MG Tablet PO (09:03)
[2024-06-23] MEDS: Ascorbic Acid 500 MG Tablet 1000 MG PO ×2 (09:03→16:00)
[2024-06-23] MEDS: Carvedilol 12.5 MG Tablet PO ×2 (09:03→16:00)
[2024-06-23] MEDS: amLODIPine 5 MG Tablet PO (09:03)
[2024-06-23] MEDS: Lactobacillis Acidophilus 1 CAP PO ×4 (09:03→20:54)
[2024-06-23] MEDS: Enoxaparin 40 MG/0.4 ML Syringe SC (09:03)
[2024-06-23] MEDS: Pantoprazole Sodium 20 MG Tablet PO (09:04)
[2024-06-23] MEDS: Zinc Sulfate 50 mg zinc (220 mg) ORAL capsule PO (09:04)
[2024-06-23] MEDS: Cholecalciferol (Vit D3) 125 MCG CAPSULE (5,000 UNITS) PO (09:04)
[2024-06-23 09:06] LABS: Anisocytosis 1+
[2024-06-23] MEDS: guaiFENesin/D-Methorphan TAB.SR.12H 2 TABLET PO ×2 (10:15→20:56)
[2024-06-23] MEDS: Ipratropium/Albuterol Sulfate 3 ML AMPUL.NEB INHALATION ×3 (10:25→20:02)
--- NOTE | 2024-06-23 12:19 | PCM.PN.HOSP ---
Reason for Visit Reason for Visit: Diagnoses Hyperlipidemia, unspecified (06/23/24) Essential (primary) hypertension (06/23/24) Chronic obstructive pulmonary disease with (acute) exacerbation (06/23/24) Other abnormalities of breathing (06/23/24) Personal history of other diseases of the circulatory system (06/23/24) Objective Data Objective Data Vital Signs: Vital Signs Temp Pulse Resp BP Pulse Ox O2 Del Method O2 Flow Rate 98.2 F 90 18 116/66 94 Nasal Cannula 3 06/23/24 09:00 06/23/24 10:26 06/23/24 10:26 06/23/24 09:00 06/23/24 10:26 06/23/24 10:06/23/24 10:26 Oxygen Flow Rate (L/min) 3 Oxygen Delivery Method Nasal Cannula Weight: 134 lb 11.239 oz Body Mass Index (BMI) 23.8 Intake & Output: Intake and Output for Last 24 Hours 06/21/24 06/22/24 06/23/24 23:59 23:59 23:59 Intake Total 560 / 560 Balance 560 / 560 Lab / Micro Data 06/23/24 07:00 06/23/24 07:00 Labs: Laboratory Results - last 24 hr 06/23/24 07:00: WBC 6.2, RBC 4.00 L, Hgb 9.2 L, Hct 32.2 L, MCV 80.5 L, MCH 23.0 L, MCHC 28.6 L, RDW Std Deviation 66.8 H, RDW Coeff of Hernandez 23.7 H, Plt Count 233, MPV 11.7, Immature Gran % (Auto) 0.500, Neut % (Auto) 85.9 H, Lymph % (Auto) 12.6 L, [place] % (Auto) 0.8, Eos % (Auto) 0.0, Baso % (Auto) 0.2, Absolute Neuts (auto) 5.3, Absolute Lymphs (auto) 0.78 L, Nucleated RBC % 0, Anisocytosis 1+, Sodium 136, Potassium 3.9, Chloride 101, Carbon Dioxide 29.0, Anion Gap 6, BUN 13, Creatinine 0.43 L, Estim Creat Clear Calc 55.68, Est GFR (MDRD) Af Amer 186, Est GFR (MDRD) Non-Af 154, BUN/Creatinine Ratio 30.0 H, Glucose 221 H, Calcium 8.7, Phosphorus 2.5, Magnesium 2.0, Total Bilirubin 0.20, AST 17, ALT 18, Alkaline Phosphatase 60, Total Protein 6.1 L, Albumin 3.0 L, Globulin 3.1, Albumin/Globulin Ratio 1.0, TSH 0.576 Micro: Microbiology 06/23/24 06:00 Mucosa - Nasopharyngeal Respiratory Panel (PCR) - Final 06/23/24 06:00 Mucosa - Nasopharyngeal Coronavirus COVID-19 PCR - Final Physical Exam Narrative Seen and examined. History of COPD, ex-smoker. Quit 9 years ago. Used to smoke a pack per day. Started at the age of 19. She is still short of breath, wheezing, feeling chest tightness, unable to bring up phlegm. No fever. Physical exam General: Alert, Oriented x3, Cooperative. BMI 23.9 kg/m? HEENT: Atraumatic, PERRLA, EOMI, Normocephalic Oral: No Gingival or Mucosal Lesions/ Ulcerations Neck: Supple, No JVD, Negative Carotid Bruits Chest wall/Lungs: Air entry severely diminished in all lung tapia. Bilateral coarse wheezing and rhonchi. Expiratory phase very short. Cardiovascular: Regular rate, Regular Rhythm, Normal S1, Normal S2, No M/G/R Abdomen: Bowel Sounds Present, Soft, Non Tender, Non-Distended : No dysuria. No renal angle tenderness. No suprapubic tenderness. Extremities: No edema, Capillary Refill Less than 3 Seconds Skin: No rashes, No breakdown Musculoskeletal: No Tenderness to Palpation of Joints or Extremities Neurological: Cranial nerves II-XII grossly intact, DTR 2+/4. No acute focal neurological deficit. Psych/Mental Status: Flat affect. Assessment & Plan Assessment/Plan (1) COPD exacerbation: PLAN: Plan 69-year-old female was directly admitted from [place] ER for acute exacerbation of shortness of breath for 2 days , chest congestion, cannot bring up phlegm and wheezing. 1. AE COPD with CT positive for an ~1.6 cm x ~1.4 cm RLL spiculated opacity/nodule (previously ~2 cm x ~2 cm) - Admit to PCU. Inspector [employer] consulted. Patient is being managed on scheduled bronchodilator, IV Solu-Medrol, Mucinex, incentive spirometry and Pep. She follows Dr. Eleno Crawford in the [facility]. She had decided a certified medical records coder 2. Mild hypoxia with chronic emphysematous changes, bronchiectasis and pleural-parenchymal thickening: CT chest from [place] ER reviewed. It also shows significant emphysematous changes lower lobe bronchiectasis. Mid biapical pleural-parenchymal thickening. There are 2 stable appearing lesion in right upper lobe and nodule in the left lower lobe less than a centimeter. History of chronic cigarette smoking. Quit 9 years ago. Used to smoke a pack per day. Started at the age of 19. Patient is on 4 L of oxygen, pulse ox 99%. 3. Essential hypertension - Maintain home regimen. On amlodipine 5 mg daily. Carvedilol 12.5 mg twice daily. 4. Hyperlipidemia - Resume statin as before. 5. CAD; s/p NSTEMI - Continue BASA as previous. 6. Listed allergy to Morphine/PCN and Sulfa - Avoid these classes of agent if possible. 7. History of COVID-19 - 8. GERD - Continue PPI. 9. RA - Chronic and stable with no evidence of acute flare at this time. 10. OA - Give Tylenol prn. 11. DVT prophylaxis - Lovenox 40 mg sq daily plus SCD's. Laboratory Results 06/23/24 07:00: WBC 6.2, RBC 4.00 L, Hgb 9.2 L, Hct 32.2 L, MCV 80.5 L, MCH 23.0 L, MCHC 28.6 L, RDW Std Deviation 66.8 H, RDW Coeff of Hernandez 23.7 H, Plt Count 233, MPV 11.7, Immature Gran % (Auto) 0.500, Neut % (Auto) 85.9 H, Lymph % (Auto) 12.6 L, [place] % (Auto) 0.8, Eos % (Auto) 0.0, Baso % (Auto) 0.2, Absolute Neuts (auto) 5.3, Absolute Lymphs (auto) 0.78 L, Nucleated RBC % 0, Sodium 136, Potassium 3.9, Chloride 101, Carbon Dioxide 29.0, Anion Gap 6, BUN 13, Creatinine 0.43 L, Estim Creat Clear Calc 55.68, Est GFR (MDRD) Af Amer 186, Est GFR (MDRD) Non-Af 154, BUN/Creatinine Ratio 30.0 H, Glucose 221 H, Calcium 8.7, Phosphorus 2.5, Magnesium 2.0, Total Bilirubin 0.20, AST 17, ALT 18, Alkaline Phosphatase 60, Total Protein 6.1 L, Albumin 3.0 L, Globulin 3.1, Albumin/Globulin Ratio 1.0, TSH 0.576 Charges/Coding Visit Charges Inpatient E&M: 45497 Subs Hosp L2
--- NOTE | 2024-06-23 17:51 | CON.PCM.CC_ITS ---
HPI Consult Data Date of Consult: 06/23/24 HPI Narrative HPI Narrative: Mrs. SIMI JARAMILLO, is a 69 F with a past medical history of essential hypertension, hyperlipidemia, history of tobacco abuse (quit ~2014); with subsequent asthma/COPD, chronic hypoxic respiratory failure; on 4L NC continuously, CAD; s/p NSTEMI still on BASA (but recently taken off Plavix) who comes in for SOB. Patient states that she was recently hospitalized prior to this admission. She has been experiencing SOB and feeling like someone is sitting on her chest. She reportly had a CT nodule ~1.6 cm spiculate lesion in her RLL with repeat imaging recommended in 3-6 months with her ER physician at [facility] Medical History NSTEMI (non-ST elevated myocardial infarction) Elevated troponin COVID Knee arthropathy Cholecystectomy planned delivery affecting Rheumatoid arthritis GERD (gastroesophageal reflux disease) Former smoker Smoker Asthma COPD (chronic obstructive pulmonary disease) Chest pain Hypertension Hypertension Home Medications ?Medication ?Instructions ?Recorded ?Last Taken ?Type albuterol sulfate 2.5 mg/3 mL inhalation Q4H sob 11/27/21 Unknown History (0.083 %) solution for nebulization lisinopril 40 mg tablet (Zestril) 40 mg PO DAILY blood pressure 11/27/21 Unknown History aspirin 81 mg chewable tablet 81 mg PO BREAKFAST #30 tabs 11/28/21 Unknown Rx amlodipine 5 mg tablet 5 mg PO DAILY 01/10/22 Unknown History atorvastatin 40 mg tablet 40 mg PO QHS #30 tabs 01/10/22 Unknown Rx carvedilol 6.25 mg tablet 12.5 mg PO BID 01/10/22 Unknown History clopidogrel 75 mg tablet 75 mg PO DAILY #30 tabs 01/10/22 Unknown Rx esomeprazole magnesium 20 mg 20 mg PO DAILY 01/10/22 Unknown History capsule,delayed release (Nexium 24HR) nitroglycerin 0.4 mg sublingual 0.4 mg sublingual Q5-15M PRN chest 01/10/22 Unknown Rx tablet pain #25 tabs Allergy/AdvReac Type Severity Reaction Status Date / Time codeine Allergy NEEDS Verified 01/10/22 10:43 FOLLOW-UP morphine Allergy NEEDS Verified 01/10/22 10:43 FOLLOW-UP Penicillins Allergy NEEDS Verified 01/10/22 10:43 FOLLOW-UP Sulfa (Sulfonamide Allergy NEEDS Verified 01/10/22 10:43 Antibiotics) FOLLOW-UP Family History Father CVA (cerebral vascular accident) Mother CVA (cerebral vascular accident) Other Bipolar 1 disorder Diabetes Myocardial infarction Social History household members: spouse Smoking Status: Former smoker alcohol intake: never substance use type: does not use ROS Respiratory/Chest Respiratory/Chest: Reports chest tightness and dyspnea Gastrointestinal Gastrointestinal: Denies abdominal pain or diarrhea Genitourinary Genitourinary: Denies difficulty urinating or dysuria Musculoskeletal Musculoskeletal: Denies arthralgias or back pain Objective Data Objective Data Vital Signs: Vital Signs Last response 3 Temperature 36.8 C 06/23/24 15:58 Temperature Source Oral 06/23/24 15:58 Pulse Rate 86 06/23/24 15:58 Respiratory Rate 18 06/23/24 15:58 Respiratory Effort Normal, Non-Labored 06/23/24 14:00 Respiratory Depth Normal 06/23/24 14:00 Respiratory Pattern Normal 06/23/24 15:21 Blood Pressure 128/69 H 06/23/24 15:58 Blood Pressure Mean 88 06/23/24 15:58 Blood Pressure Source Monitor 06/23/24 03:45 Blood Pressure Position Semi-Fowlers 06/23/24 03:45 Blood Pressure Location Left Arm 06/23/24 03:45 Pulse Ox 98 06/23/24 15:58 Oxygen Delivery Method Nasal Cannula 06/23/24 15:58 Oxygen Flow Rate (L/min) 4 06/23/24 15:58 I&O: I&O Last 24 Hours 3 06/22/24 06/23/24 06/23/24 23:59 11:59 23:59 Intake Total 560 / 560 Balance 560 / 560 I&O: Total Stay 3 06/23/24 thru 06/23/24 11:39 Intake Total 560 Balance 560 Current Meds Ordered / Administered: Current meds ordered / Administered 3 Generic Name Dose Route Start Last Admin Trade Name Freq PRN Reason Stop Dose Admin Albuterol/Ipratropium 3 ml 06/23/24 09:30 06/23/24 15:21 Ipratropium/Albuterol Sulfate 3 Ml Ampul.Neb INHALATION 3 ml Q4HWA.RT KERRIE Administration Amlodipine Besylate 5 mg 06/23/24 10:00 06/23/24 09:03 Amlodipine 5 Mg Tablet PO 5 mg DAILY KERRIE Administration Protocol Ascorbic Acid 1,000 mg 06/23/24 08:00 06/23/24 16:00 Ascorbic Acid 500 Mg Tablet PO 1,000 mg BIDCM KERRIE Administration Aspirin 81 mg 06/23/24 08:00 06/23/24 09:02 Aspirin 81 Mg Tab.Chew PO 81 mg BREAKFAST KERRIE Administration Atorvastatin Calcium 40 mg 06/23/24 22:00 Atorvastatin Calcium 40 Mg Tablet PO QHS [facility] Carvedilol 12.5 mg 06/23/24 08:00 06/23/24 16:00 Carvedilol 12.5 Mg Tablet PO 12.5 mg BIDCM [facility] Administration Protocol Cholecalciferol 125 mcg 06/23/24 10:00 06/23/24 09:04 Cholecalciferol (Vit D3) 125 Mcg Capsule (5,000 Units) PO 125 mcg DAILY KERRIE Administration Enoxaparin Sodium 40 mg 06/23/24 10:00 06/23/24 09:03 Enoxaparin 40 Mg/0.4 Ml Syringe SC 40 mg DAILY KERRIE Administration Guaifenesin 2 tablet 06/23/24 10:00 06/23/24 10:15 Guaifenesin/D-Methorphan Tab.Sr.12h PO 2 tablet BID KERRIE Administration Sodium Chloride 1,000 mls @ 70 mls/hr 06/23/24 05:00 06/23/24 05:58 IV 70 mls/hr .[id number] KERRIE Administration Lisinopril 40 mg 06/23/24 10:00 06/23/24 09:03 Lisinopril 40 Mg Tablet PO 40 mg DAILY KERRIE Administration Protocol Melatonin 3 mg 06/23/24 05:07 Melatonin 3 Mg Tablet PO QHS PRN PRN INSOMNIA Methylprednisolone 40 mg 06/23/24 14:00 06/23/24 13:20 Methylprednisolone 40 Mg/Ml Vial IV 40 mg Q8 KERRIE Administration Nitroglycerin 0.4 mg 06/23/24 05:07 Nitroglycerin (Inpatient Use) 0.4 Mg Tab.Subl SL Q5M PRN chest pain Ondansetron HCl 4 mg 06/23/24 05:07 Ondansetron 4 Mg/2 Ml Vial IV Q8H PRN PRN NAUSEA/VOMITING Pantoprazole Sodium 20 mg 06/23/24 10:00 06/23/24 09:04 Pantoprazole Sodium 20 Mg Tablet PO 20 mg DAILY KERRIE Administration Sodium Chloride 10 - 40 ml 06/23/24 04:49 06/23/24 13:20 0.9% Saline Lock 10 Ml Syringe IV 10 ml UD PRN Administration SALINE FLUSH Zinc Sulfate 50 mg 06/23/24 10:00 06/23/24 09:04 Zinc Sulfate 50 Mg Zinc (220 Mg) Oral Capsule PO 50 mg DAILY KERRIE Administration Physical Exam Const alert and oriented x3 HEENT normocephalic and head/scalp atraumatic Eyes PERRL Resp Effort and Inspection: labored and prolonged expiratory phase Auscultation: wheezes Cardio regular rate, regular rhythm and S1 normal heart sound Skin no rashes or lesions noted Neuro oriented x3 and CN's II-XII intact bilaterally Lab / Micro Data 06/23/24 07:00 06/23/24 07:00 Labs: Laboratory Results - last 24 hr 06/23/24 07:00: WBC 6.2, RBC 4.00 L, Hgb 9.2 L, Hct 32.2 L, MCV 80.5 L, MCH 23.0 L, MCHC 28.6 L, RDW Std Deviation 66.8 H, RDW Coeff of Hernandez 23.7 H, Plt Count 233, MPV 11.7, Immature Gran % (Auto) 0.500, Neut % (Auto) 85.9 H, Lymph % (Auto) 12.6 L, Cataño % (Auto) 0.8, Eos % (Auto) 0.0, Baso % (Auto) 0.2, Absolute Neuts (auto) 5.3, Absolute Lymphs (auto) 0.78 L, Nucleated RBC % 0, Anisocytosis 1+, Sodium 136, Potassium 3.9, Chloride 101, Carbon Dioxide 29.0, Anion Gap 6, BUN 13, Creatinine 0.43 L, Estim Creat Clear Calc 55.68, Est GFR (MDRD) Af Amer 186, Est GFR (MDRD) Non-Af 154, BUN/Creatinine Ratio 30.0 H, Glucose 221 H, Calcium 8.7, Phosphorus 2.5, Magnesium 2.0, Total Bilirubin 0.20, AST 17, ALT 18, Alkaline Phosphatase 60, Total Protein 6.1 L, Albumin 3.0 L, Globulin 3.1, Albumin/Globulin Ratio 1.0, TSH 0.576 Micro: Microbiology 06/23/24 06:00 Mucosa - Nasopharyngeal Respiratory Panel (PCR) - Final 06/23/24 06:00 Mucosa - Nasopharyngeal Coronavirus COVID-19 PCR - Final Assessment and Plan . Assessment and plan: AECOPD LLL nodule - cont with steroids and nebs - consider LABA or LAMA to add to her regimen - she is having trouble coughing up sputum - will start levaquin given her exacerbation - for nodule she likely needs a PET scan Critical Care Time: 60 mins The entirety of this encounter was done via Telemedicine
[2024-06-23] MEDS: Atorvastatin Calcium 40 MG Tablet PO (20:54)
[2024-06-24] VITALS (8 sets, daily range): BP systolic 135–157; BP diastolic 74–94; PULSE 74–89; RESP 16–20; TEMP 36.1–36.7; O2SAT 93–100; BMI 25.4
[2024-06-24] MEDS: levoFLOXacin 750 MG Tablet PO (06:20)
[2024-06-24] MEDS: 0.9% Saline Lock 10 ML Syringe IV ×2 (06:21→23:30)
[2024-06-24 06:29] LABS: Absolute Lymphocyte Count 1.27 X10^3/uL (0.83-4.51); Absolute Neutrophil Count 9.7 X10^3/uL (2.0-7.7); Basophil# 0.01 X10^3/uL; Basophil% 0.1 % (0-1); Hematocrit 30.9 % (37-47); Hemoglobin 8.8 g/dL (12.0-15.0); Lymphocyte # 1.27 X10^3/ul (0.83-4.51); Lymphocyte % 10.8 % (19-41); Mean Corp Hgb Conc 28.5 g/dL (32-36); Mean Corpuscular Hgb 23.2 pg (27.0-32.0); Mean Corpuscular Volume 81.3 fL (81-99); Mean Platelet Vol. 11.8 fl (6.2-12.0); Monocyte# 0.68 X10^3/uL; Monocyte% 5.8 % (0-10); NRBC Flagged by Analyzer 0 % (0-5); Neutrophil % 82.6 % (47-70); POSITIVE MORPHOLOGY YES; Platelet Count 228 K/mm3 (150-450); RBC Distribution Width CV 24.5 % (11.6-14.6); RBC Distribution Width SD 69.8 fl (35.1-43.9); White Blood Count 11.7 K/mm3 (4.4-11.0)
[2024-06-24 06:36] LABS: Differential Indicated SCAN CRITERIA MET
[2024-06-24 06:47] LABS: Anion Gap 1 (5-15); BUN 15 mg/dL (7-18); Calcium,Total 8.9 mg/dL (8.5-10.1); Chloride 107 mmol/L (98-107); Creatinine, Serum 0.34 mg/dL (0.55-1.02); EST Glomerular Filtration Rate 203 mL/min (>60); Est Glom Filt Rate - Afr Amer 245 mL/min (>60); Estimated Creatinine Clearance 61.16 ml/min; Glucose 136 mg/dL (74-106); Sodium Level 139 mmol/L (136-145)
[2024-06-24] MEDS: Ipratropium/Albuterol Sulfate 3 ML AMPUL.NEB INHALATION ×4 (07:11→19:15)
[2024-06-24 07:18] LABS: Anisocytosis 2+
[2024-06-24] MEDS: Aspirin 81 MG TAB.CHEW PO (08:37)
[2024-06-24] MEDS: Enoxaparin 40 MG/0.4 ML Syringe SC (08:38)
[2024-06-24] MEDS: Carvedilol 12.5 MG Tablet PO ×2 (08:38→18:10)
[2024-06-24] MEDS: Ascorbic Acid 500 MG Tablet 1000 MG PO ×2 (08:38→18:10)
[2024-06-24] MEDS: Lactobacillis Acidophilus 1 CAP PO ×4 (08:38→21:08)
[2024-06-24] MEDS: Zinc Sulfate 50 mg zinc (220 mg) ORAL capsule PO (08:39)
[2024-06-24] MEDS: guaiFENesin/D-Methorphan TAB.SR.12H 2 TABLET PO ×2 (08:39→21:08)
[2024-06-24] MEDS: Pantoprazole Sodium 20 MG Tablet PO (08:39)
[2024-06-24] MEDS: amLODIPine 5 MG Tablet PO (08:40)
[2024-06-24] MEDS: Cholecalciferol (Vit D3) 125 MCG CAPSULE (5,000 UNITS) PO (08:40)
[2024-06-24] MEDS: Lisinopril 40 MG Tablet PO (08:40)
--- NOTE | 2024-06-24 09:24 | PN.CC_ITS ---
Assessment & Plan Assessment/Plan (1) COPD exacerbation: PLAN: Plan RECOMMENDATIONS: 1. Supplemental oxygen to maintain saturations at or above 90%. 2. Continue bronchodilators and IV steroids. 3. At discharge, recommend transitioning to prednisone 40 mg daily and weaning by 10 mg every 3 days. 4. Continue Levaquin to complete 7 days of therapy. 5. Recommend outpatient pulmonary follow-up within 2 weeks of discharge. 6. Images from CAT scan completed at [place] will need to be pushed through to our system for review. 8. Encourage incentive spirometer use and mobilize patient as tolerated. IMPRESSIONS: 1. COPD with exacerbation Unclear precipitating etiology. The patient reported that she has a history of COPD. Despite this, she stated that it is in fact her kidney doctor that is managing her COPD. This does not make sense to me. I do not have any outside medical records from this patient for review. Therefore, for now, it is reasonable to continue Levaquin to complete 7 days of therapy along with scheduled bronchodilators and steroids. At discharge, I would recommend a slow prednisone taper, as outlined above. The patient is currently maintaining appropriate oxygen saturations on her baseline requirement. Ultimately, the patient should follow-up in the pulmonary medicine clinic within 2 weeks of discharge. 2. Right lower lobe pulmonary nodule According to documentation, the CT imaging from [facility] demonstrated a right lower lobe pulmonary nodule measuring 1.6 cm. I do not have the actual images from that CT scan to review. Ultimately, the patient would benefit from pet imaging following discharge. 3. History of tobacco dependency in remission/hypertension/hyperlipidemia/coronary artery disease Complicates care, management, recovery and prognosis. Continue home medications as indicated. This note was generated with [employer] dictation software. It may contain incorrect words, spelling, and punctuation that were not noted in checking the note before signing. Subjective Subjective The patient was seen and examined at the bedside this morning. Events from the last 24 hours have been reviewed. The patient is currently afebrile, hemodynamically stable and maintaining appropriate oxygen saturations on 3 L/min via nasal cannula. The patient reported that she was previously diagnosed with COPD. However, she stated that it was actually a kidney doctor who is managing her COPD. She does believe that she had pulmonary function studies done a number of years ago in [facility]. She has a remote smoking history, having quit completely 9 years ago. She is currently prescribed Advair and as needed albuterol at her baseline. The patient reported that she has a baseline oxygen requirement of 4 L/min. It appears that she was transferred here from [facility] on June 23 after there was no bed availability noted there. The patient apparently had a CT completed there which demonstrated a 1.6 cm spiculated lesion in the right lower lobe. White count this morning was noted to be 11,000. Chemistry profile was unremarkable. Objective Data Objective Data The patient's most recent lab work, culture data and imaging studies have all been personally reviewed. COVID PCR was negative. Respiratory viral panel was negative. Vital Signs: Vital Signs Temp Pulse Resp BP Pulse Ox O2 Del Method O2 Flow Rate 97.3 F L 87 16 141/91 H 100 Nasal Cannula 4 06/24/24 02:06/24/24 02:21 06/24/24 02:21 06/24/24 02:21 06/24/24 02:06/24/24 02:55 06/24/24 02:55 Oxygen Flow Rate (L/min) 4 Oxygen Delivery Method Nasal Cannula Weight: 144 lb Body Mass Index (BMI) 25.4 Intake & Output: Intake and Output for Last 24 Hours 06/22/24 06/23/24 06/24/24 23:59 23:59 23:59 Intake Total 2044.67 / 2044.67 Balance 2044.67 / 2044.67 Lab / Micro Data Attestation: I reviewed the patient's lab results. 06/24/24 05:54 06/24/24 05:54 Labs: Laboratory Results - last 24 hr 06/24/24 05:54: WBC 11.7 H, RBC 3.80 L, Hgb 8.8 L, Hct 30.9 L, MCV 81.3, MCH 23.2 L, MCHC 28.5 L, RDW Std Deviation 69.8 H, RDW Coeff of Hernandez 24.5 H, Plt Count 228, MPV 11.8, Immature Gran % (Auto) 0.700, Neut % (Auto) 82.6 H, Lymph % (Auto) 10.8 L, Dickens % (Auto) 5.8, Eos % (Auto) 0.0, Baso % (Auto) 0.1, Absolute Neuts (auto) 9.7 H, Absolute Lymphs (auto) 1.27, Nucleated RBC % 0, Anisocytosis 2+, Sodium 139, Potassium 4.0, Chloride 107, Carbon Dioxide 31.0, Anion Gap 1 L, BUN 15, Creatinine 0.34 L, Estim Creat Clear Calc 61.16, Est GFR (MDRD) Af Amer 245, Est GFR (MDRD) Non-Af 203, BUN/Creatinine Ratio 44.0 H, Glucose 136 H, Calcium 8.9 Micro: Microbiology 06/23/24 06:00 Mucosa - Nasopharyngeal Respiratory Panel (PCR) - Final 06/23/24 06:00 Mucosa - Nasopharyngeal Coronavirus COVID-19 PCR - Final Physical Exam Const alert and no apparent distress General Appearance: cooperative HEENT normocephalic, head/scalp atraumatic and moist oral mucous membranes Eyes PERRL, EOMs intact bilaterally and conjunctivae normal Neck supple General: trachea midline Chest inspection of chest normal Resp normal respiratory effort Auscultation: wheezes and diminished lung sounds Cardio regular rate and regular rhythm GI normal to inspection, nondistended, normoactive bowel sounds Extremity no clubbing, cyanosis or edema Skin no rashes or lesions noted Neuro CN's II-XII intact bilaterally, moves all extremities and no focal motor deficits Psych cooperative and affect normal Charges/Coding Visit Charges Inpatient E&M: 93077 Subs Hosp L2
--- NOTE | 2024-06-24 10:56 | CASEMGMT ---
ISAIAH RENDON Assessment: Face to Face with pt for initial transition planning/care coordination assessment. ISAIAH RENDON introduced self and role at [facility], pt voices understanding and consents to assessment. Pt is A&O x4 and answers all questions appropriately at this time. Pt lying in bed in no distress. Care providers, pharmacy, and demographics verified/updated. Strata: 1 Admitting Dx: COPD exacerbation PCP: Daniel Specialists: Reji, [employer]pwood Buyer; Ty, Nursing Faculty. Preferred Pharmacy: [facility]. Insurance: [facility] Prescription Benefit: yes LNOK: Living Arrangements: Pt lives with and 2 sons in a 1 story home with 1 step to enter. ADLs: Pt reports I with ADLs at home. Transportation: Pt reports family drives her and denies concerns with transportation. DME: O2 from [employer], pt states has a portable tank that she can use to go home with. HHC/SNF: Denies Hx of. Pt states no concerns with going home at time of dc. Pt states no further concerns/needs. CM to follow. Advised pt to ask CM if any further question/concerns/needs arise, voices understanding. Pt Goal: Home Plan: Home, follow O2 needs. Dalia COLON CM
--- NOTE | 2024-06-24 14:38 | PCM.PN.HOSP ---
Reason for Visit Reason for Visit: Diagnoses Hyperlipidemia, unspecified (06/23/24) Essential (primary) hypertension (06/23/24) Chronic obstructive pulmonary disease with (acute) exacerbation (06/23/24) Other abnormalities of breathing (06/23/24) Personal history of other diseases of the circulatory system (06/23/24) Objective Data Objective Data Vital Signs: Vital Signs Temp Pulse Resp BP Pulse Ox O2 Del Method O2 Flow Rate 98.0 F 85 20 H 157/94 H 100 Nasal Cannula 3 06/24/24 08:00 06/24/24 10:51 06/24/24 10:51 06/24/24 08:00 06/24/24 08:00 06/24/24 08:00 06/24/24 08:00 Oxygen Flow Rate (L/min) 3 Oxygen Delivery Method Nasal Cannula Weight: 144 lb Body Mass Index (BMI) 25.4 Intake & Output: Intake and Output for Last 24 Hours 06/22/24 06/23/24 06/24/24 23:59 23:59 23:59 Intake Total 2044.67 / 2044.67 1000 / 1000 Balance 2044.67 / 2044.67 1000 / 1000 Lab / Micro Data 06/24/24 05:54 06/24/24 05:54 Labs: Laboratory Results - last 24 hr 06/24/24 05:54: WBC 11.7 H, RBC 3.80 L, Hgb 8.8 L, Hct 30.9 L, MCV 81.3, MCH 23.2 L, MCHC 28.5 L, RDW Std Deviation 69.8 H, RDW Coeff of Hernandez 24.5 H, Plt Count 228, MPV 11.8, Immature Gran % (Auto) 0.700, Neut % (Auto) 82.6 H, Lymph % (Auto) 10.8 L, Owen % (Auto) 5.8, Eos % (Auto) 0.0, Baso % (Auto) 0.1, Absolute Neuts (auto) 9.7 H, Absolute Lymphs (auto) 1.27, Nucleated RBC % 0, Anisocytosis 2+, Sodium 139, Potassium 4.0, Chloride 107, Carbon Dioxide 31.0, Anion Gap 1 L, BUN 15, Creatinine 0.34 L, Estim Creat Clear Calc 61.16, Est GFR (MDRD) Af Amer 245, Est GFR (MDRD) Non-Af 203, BUN/Creatinine Ratio 44.0 H, Glucose 136 H, Calcium 8.9 Micro: Microbiology 06/23/24 06:00 Mucosa - Nasopharyngeal Respiratory Panel (PCR) - Final 06/23/24 06:00 Mucosa - Nasopharyngeal Coronavirus COVID-19 PCR - Final Physical Exam Narrative Seen and examined. Patient is getting normalized and he still very short of breath and wheezing. Looks like in respiratory distress with tachypnea and lingered short of breath during conversation History of COPD, ex-smoker. Quit 9 years ago. Used to smoke a pack per day. Started at the age of 19. Physical exam General: Alert, Oriented x3, Cooperative. BMI 23.9 kg/m? HEENT: Atraumatic, PERRLA, EOMI, Normocephalic Oral: No Gingival or Mucosal Lesions/ Ulcerations Neck: Supple, No JVD, Negative Carotid Bruits Chest wall/Lungs: Air entry severely diminished in all lung tapia. Bilateral coarse wheezing and rhonchi. Expiratory phase very short. Cardiovascular: Regular rate, Regular Rhythm, Normal S1, Normal S2, No M/G/R Abdomen: Bowel Sounds Present, Soft, Non Tender, Non-Distended : No dysuria. No renal angle tenderness. No suprapubic tenderness. Extremities: No edema, Capillary Refill Less than 3 Seconds Skin: No rashes, No breakdown Musculoskeletal: No Tenderness to Palpation of Joints or Extremities Neurological: Cranial nerves II-XII grossly intact, DTR 2+/4. No acute focal neurological deficit. Psych/Mental Status: Flat affect. Assessment & Plan Assessment/Plan (1) COPD exacerbation: PLAN: Plan 69-year-old female was directly admitted from [facility] for acute exacerbation of shortness of breath for 2 days , chest congestion, cannot bring up phlegm and wheezing. 1. AE COPD with CT positive for an ~1.6 cm x ~1.4 cm RLL spiculated opacity/nodule (previously ~2 cm x ~2 cm) - Admit to PCU. Marketing Outreach Coordinator consulted. Patient is being managed on scheduled bronchodilator, IV Solu-Medrol, Mucinex, incentive spirometry and Pep. She follows Dr. Eleno Crawford in the [facility] as her oracle developer. But actually Dr. Eleno Crawford is aircraft engine dismantler 9/16: Patient is still very symptomatic with shortness of breath, tachypnea wheezing and respiratory distress. IV Solu-Medrol frequency increased. Was seen by oracle developer. Will need PET scan after discharge for further evaluation of 1.6 cm pulmonary nodule. 2. Mild hypoxia with chronic emphysematous changes, bronchiectasis and pleural-parenchymal thickening: CT chest from [facility] reviewed. It also shows significant emphysematous changes lower lobe bronchiectasis. Mid biapical pleural-parenchymal thickening. There are 2 stable appearing lesion in right upper lobe and nodule in the left lower lobe less than a centimeter. History of chronic cigarette smoking. Quit 9 years ago. Used to smoke a pack per day. Started at the age of 19. Patient is on 4 L of oxygen, pulse ox 99%. 06/24: On 3 to 4 L of oxygen 3. Essential hypertension - Maintain home regimen. On amlodipine 5 mg daily. Carvedilol 12.5 mg twice daily. 4. Hyperlipidemia - Resume statin as before. 5. CAD; s/p NSTEMI - Continue BASA as previous. 6. Listed allergy to Morphine/PCN and Sulfa - Avoid these classes of agent if possible. 7. History of COVID-19 - 8. GERD - Continue PPI. 9. RA - Chronic and stable with no evidence of acute flare at this time. 10. OA - Give Tylenol prn. 11. DVT prophylaxis - Lovenox 40 mg sq daily plus SCD's. Charges/Coding Visit Charges Inpatient E&M: 74489 Subs Hosp L2
[2024-06-24] MEDS: Benzonatate 100 MG Capsule 200 MG PO ×2 (16:02→21:08)
[2024-06-24] MEDS: Acetaminophen 325 MG Tablet 650 MG PO ×2 (16:02→22:35)
[2024-06-24] MEDS: Sodium Ferric Gluconat/Sucrose 250 MG in 0.9% Normal Saline (250mL Bag) 250 ML 135 MG IV (16:09)
[2024-06-24] MEDS: Atorvastatin Calcium 40 MG Tablet PO (21:08)
[2024-06-25] VITALS (10 sets, daily range): BP systolic 129–147; BP diastolic 7–89; PULSE 71–94; RESP 16–23; TEMP 35.5–36.7; O2SAT 98–100; BMI 25.9
[2024-06-25] MEDS: 0.9% Saline Lock 10 ML Syringe IV (05:29)
[2024-06-25] MEDS: Benzonatate 100 MG Capsule 200 MG PO ×3 (05:29→22:43)
[2024-06-25] MEDS: levoFLOXacin 750 MG Tablet PO (05:29)
[2024-06-25] MEDS: Albuterol 2.5 MG/3 ML VIAL.NEB. INHALATION (05:45)
[2024-06-25 05:53] LABS: Absolute Lymphocyte Count 1.08 X10^3/uL (0.83-4.51); Absolute Neutrophil Count 10.1 X10^3/uL (2.0-7.7); Basophil# 0.01 X10^3/uL; Basophil% 0.1 % (0-1); Hematocrit 32.2 % (37-47); Hemoglobin 9.2 g/dL (12.0-15.0); Lymphocyte # 1.08 X10^3/ul (0.83-4.51); Lymphocyte % 9.2 % (19-41); Mean Corp Hgb Conc 28.6 g/dL (32-36); Mean Corpuscular Hgb 23.3 pg (27.0-32.0); Mean Corpuscular Volume 81.5 fL (81-99); Mean Platelet Vol. 11.5 fl (6.2-12.0); Monocyte# 0.44 X10^3/uL; Monocyte% 3.8 % (0-10); NRBC Flagged by Analyzer 0 % (0-5); Neutrophil # 10.07 X10^3/uL (2.7-7.7); POSITIVE MORPHOLOGY YES; Platelet Count 227 K/mm3 (150-450); RBC Distribution Width CV 24.2 % (11.6-14.6); RBC Distribution Width SD 69.9 fl (35.1-43.9); Red Blood Count 3.95 M/mm3 (4.2-5.4); White Blood Count 11.7 K/mm3 (4.4-11.0)
[2024-06-25 05:54] LABS: Differential Indicated SCAN CRITERIA MET
[2024-06-25 06:20] LABS: Anion Gap 4 (5-15); BUN 17 mg/dL (7-18); BUN/Creat Ratio 39.7 RATIO (10-20); Calcium,Total 9.1 mg/dL (8.5-10.1); Chloride 101 mmol/L (98-107); Creatinine, Serum 0.43 mg/dL (0.55-1.02); EST Glomerular Filtration Rate 156 mL/min (>60); Est Glom Filt Rate - Afr Amer 189 mL/min (>60); Estimated Creatinine Clearance 61.58 ml/min; Glucose 147 mg/dL (74-106); Potassium 3.9 mmol/L (3.5-5.1); Sodium Level 137 mmol/L (136-145)
[2024-06-25] MEDS: Ipratropium/Albuterol Sulfate 3 ML AMPUL.NEB INHALATION ×4 (07:24→19:24)
[2024-06-25 08:33] LABS: Anisocytosis 2+; Differential Comment SCANNED; Macrocytosis 1+; Microcytosis 1+
[2024-06-25] MEDS: Lactobacillis Acidophilus 1 CAP PO ×4 (08:52→22:42)
[2024-06-25] MEDS: Cholecalciferol (Vit D3) 125 MCG CAPSULE (5,000 UNITS) PO (08:52)
[2024-06-25] MEDS: Lisinopril 40 MG Tablet PO (08:52)
[2024-06-25] MEDS: Zinc Sulfate 50 mg zinc (220 mg) ORAL capsule PO (08:52)
[2024-06-25] MEDS: guaiFENesin/D-Methorphan TAB.SR.12H 2 TABLET PO ×2 (08:52→22:43)
[2024-06-25] MEDS: Pantoprazole Sodium 20 MG Tablet PO (08:52)
[2024-06-25] MEDS: Carvedilol 12.5 MG Tablet PO ×2 (08:52→17:45)
[2024-06-25] MEDS: Aspirin 81 MG TAB.CHEW PO (08:53)
[2024-06-25] MEDS: Ascorbic Acid 500 MG Tablet 1000 MG PO ×2 (08:53→17:45)
[2024-06-25] MEDS: amLODIPine 5 MG Tablet PO (08:53)
[2024-06-25] MEDS: Multivitamins,Therapeutic Tablet 1 TABLET PO (08:54)
--- NOTE | 2024-06-25 10:18 | PCM.PN.INT ---
Assessment & Plan Assessment/Plan (1) COPD exacerbation: PLAN: Plan RECOMMENDATIONS: 1. Supplemental oxygen to maintain saturations at or above 90%. 2. Continue bronchodilators and IV steroids. 3. At discharge, recommend transitioning to prednisone 40 mg daily and weaning by 10 mg every 3 days. 4. Continue Levaquin to complete 7 days of therapy. 5. Recommend outpatient pulmonary follow-up within 2 weeks of discharge. 6. Images from CAT scan completed at [facility] will need to be pushed through to our system for review. 7. Encourage incentive spirometer use and mobilize patient as tolerated. 8. Will sign off at this time. Please call with any additional questions. IMPRESSIONS: 1. COPD with exacerbation Unclear precipitating etiology. The patient reported that she has a history of COPD. Despite this, she stated that it is in fact her kidney doctor that is managing her COPD. This does not make sense to me. I do not have any outside medical records from this patient for review. Therefore, for now, it is reasonable to continue Levaquin to complete 7 days of therapy along with scheduled bronchodilators and steroids. At discharge, I would recommend a slow prednisone taper, as outlined above. The patient is currently maintaining appropriate oxygen saturations on her baseline requirement. Ultimately, the patient should follow-up in the pulmonary medicine clinic within 2 weeks of discharge. 2. Right lower lobe pulmonary nodule According to documentation, the CT imaging from [facility] demonstrated a right lower lobe pulmonary nodule measuring 1.6 cm. I do not have the actual images from that CT scan to review. Ultimately, the patient would benefit from pet imaging following discharge. 3. History of tobacco dependency in remission/hypertension/hyperlipidemia/coronary artery disease Complicates care, management, recovery and prognosis. Continue home medications as indicated. This note was generated with [employer] dictation software. It may contain incorrect words, spelling, and punctuation that were not noted in checking the note before signing. Subjective Subjective The patient was seen and examined at the bedside this morning. Events from the last 24 hours have been reviewed. The patient is currently afebrile, hemodynamically stable and maintaining appropriate oxygen saturations on 4 L/min via nasal cannula. Morning labs are stable. No overnight issues were identified. The patient reported that her breathing quality has improved over the last 24 hours. Objective Data Objective Data The patient's most recent lab work, culture data and imaging studies have all been personally reviewed. COVID PCR was negative. Respiratory viral panel was negative. Vital Signs: Vital Signs Temp Pulse Resp BP Pulse Ox O2 Del Method O2 Flow Rate 98.0 F 90 18 141/89 H 100 Nasal Cannula 4 06/25/24 08:45 06/25/24 08:45 06/25/24 08:45 06/25/24 08:45 06/25/24 08:45 06/25/24 09:26 06/25/24 09:26 Oxygen Flow Rate (L/min) 4 Oxygen Delivery Method Nasal Cannula Weight: 146 lb 2.664 oz Body Mass Index (BMI) 25.9 Intake & Output: Intake and Output for Last 24 Hours 06/23/24 06/24/24 06/25/24 23:59 23:59 23:59 Intake Total 2044.67 / 2044.67 1270 / 1270 Balance 2044.67 / 2044.67 1270 / 1270 Lab / Micro Data Attestation: I reviewed the patient's lab results. 06/25/24 05:29 06/25/24 05:29 Labs: Laboratory Results - last 24 hr 06/25/24 05:29: WBC 11.7 H, RBC 3.95 L, Hgb 9.2 L, Hct 32.2 L, MCV 81.5, MCH 23.3 L, MCHC 28.6 L, RDW Std Deviation 69.9 H, RDW Coeff of Hernandez 24.2 H, Plt Count 227, MPV 11.5, Immature Gran % (Auto) 0.900, Neut % (Auto) 86.0 H, Lymph % (Auto) 9.2 L, [place] % (Auto) 3.8, Eos % (Auto) 0.0, Baso % (Auto) 0.1, Absolute Neuts (auto) 10.1 H, Absolute Lymphs (auto) 1.08, Nucleated RBC % 0, Differential Comment SCANNED, Anisocytosis 2+, Microcytosis 1+, Macrocytosis 1+, Sodium 137, Potassium 3.9, Chloride 101, Carbon Dioxide 32.0, Anion Gap 4 L, BUN 17, Creatinine 0.43 L, Estim Creat Clear Calc 61.58, Est GFR (MDRD) Af Amer 189, Est GFR (MDRD) Non-Af 156, BUN/Creatinine Ratio 39.7 H, Glucose 147 H, Calcium 9.1 Micro: Microbiology 06/23/24 06:00 Mucosa - Nasopharyngeal Respiratory Panel (PCR) - Final 06/23/24 06:00 Mucosa - Nasopharyngeal Coronavirus COVID-19 PCR - Final Physical Exam Const alert and no apparent distress General Appearance: cooperative HEENT normocephalic, head/scalp atraumatic and moist oral mucous membranes Eyes PERRL, EOMs intact bilaterally and conjunctivae normal Neck supple General: trachea midline Chest inspection of chest normal Resp normal respiratory effort Auscultation: wheezes and diminished lung sounds Cardio regular rate and regular rhythm GI normal to inspection, nondistended, normoactive bowel sounds Extremity no clubbing, cyanosis or edema Skin no rashes or lesions noted Neuro CN's II-XII intact bilaterally, moves all extremities and no focal motor deficits Psych cooperative and affect normal Charges/Coding Visit Charges Inpatient E&M: 25227 Subs Hosp L2
[2024-06-25] MEDS: Enoxaparin 40 MG/0.4 ML Syringe SC (10:40)
[2024-06-25] MEDS: Ferrous Sulfate 325 MG Tablet PO (11:47)
[2024-06-25] MEDS: Ondansetron 4 MG/2 ML Vial IV (14:12)
--- NOTE | 2024-06-25 15:53 | PCM.PN.HOSP ---
Reason for Visit Reason for Visit: Diagnoses Hyperlipidemia, unspecified (06/23/24) Essential (primary) hypertension (06/23/24) Chronic obstructive pulmonary disease with (acute) exacerbation (06/23/24) Other abnormalities of breathing (06/23/24) Personal history of other diseases of the circulatory system (06/23/24) Objective Data Objective Data Vital Signs: Vital Signs Temp Pulse Resp BP Pulse Ox O2 Del Method O2 Flow Rate 98.1 F 84 18 129/7 H 99 Nasal Cannula 4 06/25/24 14:04 06/25/24 14:04 06/25/24 14:04 06/25/24 14:04 06/25/24 14:04 06/25/24 14:43 06/25/24 14:43 Oxygen Flow Rate (L/min) 4 Oxygen Delivery Method Nasal Cannula Weight: 146 lb 2.664 oz Body Mass Index (BMI) 25.9 Intake & Output: Intake and Output for Last 24 Hours 06/23/24 06/24/24 06/25/24 23:59 23:59 23:59 Intake Total 2044.67 / 2044.67 1270 / 1270 420 / 420 Balance 2044.67 / 2044.67 1270 / 1270 420 / 420 Lab / Micro Data 06/25/24 05:29 06/25/24 05:29 Labs: Laboratory Results - last 24 hr 06/25/24 05:29: WBC 11.7 H, RBC 3.95 L, Hgb 9.2 L, Hct 32.2 L, MCV 81.5, MCH 23.3 L, MCHC 28.6 L, RDW Std Deviation 69.9 H, RDW Coeff of Hernandez 24.2 H, Plt Count 227, MPV 11.5, Immature Gran % (Auto) 0.900, Neut % (Auto) 86.0 H, Lymph % (Auto) 9.2 L, [place] % (Auto) 3.8, Eos % (Auto) 0.0, Baso % (Auto) 0.1, Absolute Neuts (auto) 10.1 H, Absolute Lymphs (auto) 1.08, Nucleated RBC % 0, Differential Comment SCANNED, Anisocytosis 2+, Microcytosis 1+, Macrocytosis 1+, Sodium 137, Potassium 3.9, Chloride 101, Carbon Dioxide 32.0, Anion Gap 4 L, BUN 17, Creatinine 0.43 L, Estim Creat Clear Calc 61.58, Est GFR (MDRD) Af Amer 189, Est GFR (MDRD) Non-Af 156, BUN/Creatinine Ratio 39.7 H, Glucose 147 H, Calcium 9.1 Micro: Microbiology 06/23/24 06:00 Mucosa - Nasopharyngeal Respiratory Panel (PCR) - Final 06/23/24 06:00 Mucosa - Nasopharyngeal Coronavirus COVID-19 PCR - Final Physical Exam Narrative Seen and examined. Patient first time feels better with more comfortable breathing, less wheezing. Not dyspneic at rest. History of COPD, ex-smoker. Quit 9 years ago. Used to smoke a pack per day. Started at the age of 19. Physical exam General: Alert, Oriented x3, Cooperative. BMI 23.9 kg/m? HEENT: Atraumatic, PERRLA, EOMI, Normocephalic Oral: No Gingival or Mucosal Lesions/ Ulcerations Neck: Supple, No JVD, Negative Carotid Bruits Chest wall/Lungs: Air entry diminished in both lungs. Mild bilateral coarse rhonchi and wheezing Cardiovascular: Regular rate, Regular Rhythm, Normal S1, Normal S2, No M/G/R Abdomen: Bowel Sounds Present, Soft, Non Tender, Non-Distended : No dysuria. No renal angle tenderness. No suprapubic tenderness. Extremities: No edema, Capillary Refill Less than 3 Seconds Skin: No rashes, No breakdown Musculoskeletal: No Tenderness to Palpation of Joints or Extremities Neurological: Cranial nerves II-XII grossly intact, DTR 2+/4. No acute focal neurological deficit. Psych/Mental Status: Flat affect. Assessment & Plan Assessment/Plan (1) COPD exacerbation: PLAN: Plan 69-year-old female was directly admitted from [place] [facility] for acute exacerbation of shortness of breath for 2 days , chest congestion, cannot bring up phlegm and wheezing. 1. AE COPD with CT positive for an ~1.6 cm x ~1.4 cm RLL spiculated opacity/nodule (previously ~2 cm x ~2 cm) - Admit to PCU. Commercial Crabber consulted. Patient is being managed on scheduled bronchodilator, IV Solu-Medrol, Mucinex, incentive spirometry and Pep. She follows Dr. Eleno Crawford in the [place] as her harvest field ticketer. But actually Dr. Eleno Crawford is devops 06/24: Patient is still very symptomatic with shortness of breath, tachypnea wheezing and respiratory distress. IV Solu-Medrol frequency increased. Was seen by harvest field ticketer. Will need PET scan after discharge for further evaluation of 1.6 cm pulmonary nodule. 06/25: IV Solu-Medrol frequency changed to every 12 hourly. Continue bronchodilator. Expect discharge tomorrow. Patient is feeling better with nebulization delivery. 2. Mild hypoxia with chronic emphysematous changes, bronchiectasis and pleural-parenchymal thickening: CT chest from [place] reviewed. It also shows significant emphysematous changes lower lobe bronchiectasis. Mid biapical pleural-parenchymal thickening. There are 2 stable appearing lesion in right upper lobe and nodule in the left lower lobe less than a centimeter. History of chronic cigarette smoking. Quit 9 years ago. Used to smoke a pack per day. Started at the age of 19. Patient is on 4 L of oxygen, pulse ox 99%. 06/24: On 3 to 4 L of oxygen 06/25 oxygen requirement 3 to 4 L. 3. Essential hypertension - Maintain home regimen. On amlodipine 5 mg daily. Carvedilol 12.5 mg twice daily. 4. Hyperlipidemia - Resume statin as before. 5. CAD; s/p NSTEMI - Continue BASA as previous. 6. Listed allergy to Morphine/PCN and Sulfa - Avoid these classes of agent if possible. 7. History of COVID-19 - 8. GERD - Continue PPI. 9. RA - Chronic and stable with no evidence of acute flare at this time. 10. OA - Give Tylenol prn. 11. DVT prophylaxis - Lovenox 40 mg sq daily plus SCD's. Charges/Coding Visit Charges Inpatient E&M: 34239 Subs Hosp L2
[2024-06-25] MEDS: Atorvastatin Calcium 40 MG Tablet PO (22:42)
[2024-06-25] MEDS: Acetaminophen 325 MG Tablet 650 MG PO (22:43)
[2024-06-26] VITALS (10 sets, daily range): BP systolic 102–125; BP diastolic 59–69; PULSE 67–93; RESP 16–20; TEMP 35.9–36.9; O2SAT 94–100; BMI 24.7
[2024-06-26] MEDS: levoFLOXacin 750 MG Tablet PO (05:55)
[2024-06-26] MEDS: Benzonatate 100 MG Capsule 200 MG PO ×3 (05:56→21:01)
[2024-06-26] MEDS: 0.9% Saline Lock 10 ML Syringe IV ×2 (05:56→22:31)
[2024-06-26] MEDS: Ipratropium/Albuterol Sulfate 3 ML AMPUL.NEB INHALATION ×5 (06:58→23:55)
[2024-06-26] MEDS: Aspirin 81 MG TAB.CHEW PO (09:42)
[2024-06-26] MEDS: Carvedilol 12.5 MG Tablet PO ×2 (09:42→18:12)
[2024-06-26] MEDS: guaiFENesin/D-Methorphan TAB.SR.12H 2 TABLET PO ×2 (09:42→21:01)
[2024-06-26] MEDS: Pantoprazole Sodium 20 MG Tablet PO (09:42)
[2024-06-26] MEDS: amLODIPine 5 MG Tablet PO (09:42)
[2024-06-26] MEDS: Cholecalciferol (Vit D3) 125 MCG CAPSULE (5,000 UNITS) PO (09:42)
[2024-06-26] MEDS: Ascorbic Acid 500 MG Tablet 1000 MG PO ×2 (09:42→18:12)
[2024-06-26] MEDS: Ferrous Sulfate 325 MG Tablet PO (09:42)
[2024-06-26] MEDS: Zinc Sulfate 50 mg zinc (220 mg) ORAL capsule PO (09:42)
[2024-06-26] MEDS: Lisinopril 40 MG Tablet PO (09:42)
[2024-06-26] MEDS: Lactobacillis Acidophilus 1 CAP PO ×4 (09:42→21:01)
[2024-06-26] MEDS: Multivitamins,Therapeutic Tablet 1 TABLET PO (09:42)
[2024-06-26] MEDS: Enoxaparin 40 MG/0.4 ML Syringe SC (09:42)
--- NOTE | 2024-06-26 15:10 | PCM.PN.HOSP ---
Reason for Visit Reason for Visit: Diagnoses Hyperlipidemia, unspecified (06/23/24) Essential (primary) hypertension (06/23/24) Chronic obstructive pulmonary disease with (acute) exacerbation (06/23/24) Other abnormalities of breathing (06/23/24) Personal history of other diseases of the circulatory system (06/23/24) Objective Data Objective Data Vital Signs: Vital Signs Temp Pulse Resp BP Pulse Ox O2 Del Method O2 Flow Rate 98.0 F 85 18 118/66 100 Nasal Cannula 4 06/26/24 13:58 06/26/24 13:58 06/26/24 13:58 06/26/24 13:58 06/26/24 13:58 06/26/24 13:59 06/26/24 13:58 Oxygen Flow Rate (L/min) 4 Oxygen Delivery Method Nasal Cannula Weight: 139 lb 12.369 oz Body Mass Index (BMI) 24.7 Intake & Output: Intake and Output for Last 24 Hours 06/24/24 06/25/24 06/26/24 23:59 23:59 23:59 Intake Total 1270 / 1270 420 / 920 750 / 750 Balance 1270 / 1270 420 / 920 750 / 750 Lab / Micro Data 06/25/24 05:29 06/25/24 05:29 Micro: Microbiology 06/23/24 06:00 Mucosa - Nasopharyngeal Respiratory Panel (PCR) - Final 06/23/24 06:00 Mucosa - Nasopharyngeal Coronavirus COVID-19 PCR - Final Physical Exam Narrative Seen and examined. Patient was feeling better but today in the morning she feels more wheezing, shortness of breath and dyspnea on exertion. History of COPD, ex-smoker. Quit 9 years ago. Used to smoke a pack per day. Started at the age of 19. Physical exam General: Alert, Oriented x3, Cooperative. BMI 23.9 kg/m? HEENT: Atraumatic, PERRLA, EOMI, Normocephalic Oral: No Gingival or Mucosal Lesions/ Ulcerations Neck: Supple, No JVD, Negative Carotid Bruits Chest wall/Lungs: Air entry diminished in both lungs. Mild bilateral coarse rhonchi and wheezing Cardiovascular: Regular rate, Regular Rhythm, Normal S1, Normal S2, No M/G/R Abdomen: Bowel Sounds Present, Soft, Non Tender, Non-Distended : No dysuria. No renal angle tenderness. No suprapubic tenderness. Extremities: No edema, Capillary Refill Less than 3 Seconds Skin: No rashes, No breakdown Musculoskeletal: No Tenderness to Palpation of Joints or Extremities Neurological: Cranial nerves II-XII grossly intact, DTR 2+/4. No acute focal neurological deficit. Psych/Mental Status: Flat affect. Assessment & Plan Assessment/Plan (1) COPD exacerbation: PLAN: Plan 69-year-old female was directly admitted from [place] [facility] for acute exacerbation of shortness of breath for 2 days , chest congestion, cannot bring up phlegm and wheezing. 1. AE COPD with CT positive for an ~1.6 cm x ~1.4 cm RLL spiculated opacity/nodule (previously ~2 cm x ~2 cm) - Admit to PCU. Electrician Chief consulted. Patient is being managed on scheduled bronchodilator, IV Solu-Medrol, Mucinex, incentive spirometry and Pep. She follows Dr. Eleno Crawford in the [place] as her medical radiation dosimetrist. But actually Dr. Eleno Crawford is consulting project director 06/24: Patient is still very symptomatic with shortness of breath, tachypnea wheezing and respiratory distress. IV Solu-Medrol frequency increased. Was seen by medical radiation dosimetrist. Will need PET scan after discharge for further evaluation of 1.6 cm pulmonary nodule. 06/25: IV Solu-Medrol frequency changed to every 12 hourly. Continue bronchodilator. Patient is feeling better with nebulization delivery. 06/26: Patient was put back on IV Solu-Medrol 40 mg Q6 hourly. Rest seem to continue. 2. Mild hypoxia with chronic emphysematous changes, bronchiectasis and pleural-parenchymal thickening: CT chest from [place] [facility] reviewed. It also shows significant emphysematous changes lower lobe bronchiectasis. Mid biapical pleural-parenchymal thickening. There are 2 stable appearing lesion in right upper lobe and nodule in the left lower lobe less than a centimeter. History of chronic cigarette smoking. Quit 9 years ago. Used to smoke a pack per day. Started at the age of 19. Patient is on 4 L of oxygen, pulse ox 99%. 06/24: On 3 to 4 L of oxygen 06/25 oxygen requirement 3 to 4 L. 06/26: Continues to require 4 L of oxygen. 3. Essential hypertension - Maintain home regimen. On amlodipine 5 mg daily. Carvedilol 12.5 mg twice daily. 4. Hyperlipidemia - Resume statin as before. 5. CAD; s/p NSTEMI - Continue BASA as previous. 6. Listed allergy to Morphine/PCN and Sulfa - Avoid these classes of agent if possible. 7. History of COVID-19 - 8. GERD - Continue PPI. 9. RA - Chronic and stable with no evidence of acute flare at this time. 10. OA - Give Tylenol prn. 11. DVT prophylaxis - Lovenox 40 mg sq daily plus SCD's. Charges/Coding Visit Charges Inpatient E&M: 46917 Subs Hosp L2
[2024-06-26] MEDS: Atorvastatin Calcium 40 MG Tablet PO (21:01)
[2024-06-27] VITALS (7 sets, daily range): BP systolic 104–148; BP diastolic 63–72; PULSE 71–90; RESP 14–20; TEMP 35.9–36.1; O2SAT 90–99; BMI 24.5
[2024-06-27] MEDS: Benzonatate 100 MG Capsule 200 MG PO ×2 (06:00→13:29)
[2024-06-27] MEDS: levoFLOXacin 750 MG Tablet PO (06:01)
[2024-06-27] MEDS: 0.9% Saline Lock 10 ML Syringe IV ×2 (06:01→11:47)
[2024-06-27 06:37] LABS: Absolute Neutrophil Count 7.5 X10^3/uL (2.0-7.7); Basophil# 0.02 X10^3/uL; Basophil% 0.2 % (0-1); Hematocrit 32.9 % (37-47); Hemoglobin 9.6 g/dL (12.0-15.0); Lymphocyte % 12.2 % (19-41); Mean Corp Hgb Conc 29.2 g/dL (32-36); Mean Corpuscular Hgb 23.2 pg (27.0-32.0); Mean Corpuscular Volume 79.7 fL (81-99); Mean Platelet Vol. 11.5 fl (6.2-12.0); Monocyte# 0.71 X10^3/uL; Monocyte% 7.2 % (0-10); NRBC Flagged by Analyzer 0.4 % (0-5); Neutrophil # 7.51 X10^3/uL (2.7-7.7); Neutrophil % 76.2 % (47-70); POSITIVE MORPHOLOGY YES; Platelet Count 235 K/mm3 (150-450); RBC Distribution Width CV 24.5 % (11.6-14.6); RBC Distribution Width SD 67.5 fl (35.1-43.9); Red Blood Count 4.13 M/mm3 (4.2-5.4); White Blood Count 9.9 K/mm3 (4.4-11.0)
[2024-06-27 06:40] LABS: Differential Indicated SCAN CRITERIA MET
[2024-06-27 07:07] LABS: Anion Gap 4 (5-15); BUN 26 mg/dL (7-18); BUN/Creat Ratio 58.7 RATIO (10-20); Calcium,Total 9.3 mg/dL (8.5-10.1); Chloride 97 mmol/L (98-107); Creatinine, Serum 0.44 mg/dL (0.55-1.02); EST Glomerular Filtration Rate 150 mL/min (>60); Est Glom Filt Rate - Afr Amer 181 mL/min (>60); Estimated Creatinine Clearance 60.18 ml/min; Glucose 136 mg/dL (74-106); Sodium Level 135 mmol/L (136-145)
[2024-06-27] MEDS: Ipratropium/Albuterol Sulfate 3 ML AMPUL.NEB INHALATION ×2 (07:16→11:13)
[2024-06-27] MEDS: Carvedilol 12.5 MG Tablet PO (09:20)
[2024-06-27] MEDS: Aspirin 81 MG TAB.CHEW PO (09:20)
[2024-06-27] MEDS: Enoxaparin 40 MG/0.4 ML Syringe SC (09:21)
[2024-06-27] MEDS: Ascorbic Acid 500 MG Tablet 1000 MG PO (09:21)
[2024-06-27] MEDS: Multivitamins,Therapeutic Tablet 1 TABLET PO (09:21)
[2024-06-27] MEDS: Lactobacillis Acidophilus 1 CAP PO ×2 (09:21→13:29)
[2024-06-27] MEDS: Cholecalciferol (Vit D3) 125 MCG CAPSULE (5,000 UNITS) PO (09:22)
[2024-06-27] MEDS: guaiFENesin/D-Methorphan TAB.SR.12H 2 TABLET PO (09:22)
[2024-06-27] MEDS: Pantoprazole Sodium 20 MG Tablet PO (09:22)
[2024-06-27] MEDS: amLODIPine 5 MG Tablet PO (09:22)
[2024-06-27] MEDS: Lisinopril 40 MG Tablet PO (09:23)
[2024-06-27] MEDS: Zinc Sulfate 50 mg zinc (220 mg) ORAL capsule PO (09:23)
[2024-06-27 10:27] LABS: Anisocytosis 2+; Differential Comment SCANNED; Macrocytosis 1+; Microcytosis 1+
--- NOTE | 2024-06-27 11:05 | DCINST_ITS ---
Discharge Instructions Diet Discharge Diet: Light diet - advance as tolerated and Low fat / Low cholesterol Activity Discharge Activity: Return to Normal Activity Weight Bearing Status: Weight bearing as tolerated Dressing / Incision Call your doctor if you observe: Fever of 101 or Higher, Coldness, Increased Pain, Numbness or Tingling, Change in Color, Inability to urinate, Inability to have a bowel movement, Shortness of breath, Dizziness, Fainting spells, Swelling in the ankles, Chest pain, Prolonged hiccupping, Increased palpitations (irregular heartbeat) and Calf discomfort Follow Up Care When: IN 2 WEEKS Test Results: Test results from this visit will be discussed in further detail at your follow- up appointment, if applicable. Discharge Plan Admission Admit Date/Time: 06/23/24 04:55 Primary Reason for Your Visit: COPD exacerbation Attending Provider: Derek Patel Primary Care Provider: Daniele Sanchez Consulting Providers: Karlos Lopez Discharge Orders/Prescriptions Prescriptions: New dextromethorphan-guaifenesin 60-1,200 mg tablet extended release 12 hr 1 tab PO BID 7 Days Qty: 14 0RF ferrous sulfate [FeroSul] 325 mg (65 mg iron) Tablet 325 mg PO QODAY Qty: 30 2RF levofloxacin 750 mg Tablet 750 mg PO DAILY@0600 1 Days Qty: 1 0RF prednisone 20 mg tablet See Rx Instructions .ROUTE .COMPLEX Qty: 25 0RF Rx Instructions: 40 mg daily for 5 days, 30 mg for 5 days, 20 mg for 5 days and 10 mg FOR 5 days ascorbic acid (vitamin C) 500 mg tablet 500 mg PO BID Qty: 60 2RF Continued amlodipine 5 mg tablet 5 mg PO DAILY esomeprazole magnesium [Nexium 24HR] 20 mg capsule,delayed release(DR/EC) 20 mg PO DAILY atorvastatin 40 mg tablet 40 mg PO QHS Qty: 30 4RF clopidogrel 75 mg tablet 75 mg PO DAILY Qty: 30 6RF carvedilol 6.25 mg tablet 12.5 mg PO BID nitroglycerin 0.4 mg tablet, sublingual 0.4 mg sublingual Q5-15M PRN (Reason: chest pain) Qty: 25 1RF Rx Instructions: do not exceed 3 doses per episode albuterol sulfate 2.5 mg /3 mL (0.083 %) solution for nebulization inhalation Q4H Patient Comments: USE 1 VIAL IN NEBULIZER EVERY 4 TO 6 HOURS NEEDED FOR WHEEZING lisinopril [Zestril] 40 mg tablet 40 mg PO DAILY Patient Comments: TAKE 1 TABLET BY MOUTH ONCE DAILY aspirin 81 mg Tablet,Chewable 81 mg PO BREAKFAST Qty: 30 0RF Referrals / Follow Up: Daniele Sanchez MD [Primary Care Provider] - Disposition Disposition (needs filled in before D/C Order can be placed): Home, Self Care
[2024-06-27] MEDS: Ferrous Sulfate 325 MG Tablet PO (11:46)
--- NOTE | 2024-06-27 13:50 | CASEMGMT ---
RN CM in to discuss needs at discharge. Patient states she has nebulizer and medication with refills at home. Patient maintained on her previous home oxygen orders. Patient denies needs or help at discharge. Patient has no further questions or concerns.
--- NOTE | 2024-06-27 13:54 | PCM.DC.SUM ---
Providers Date of Admission: 06/23/24 Date of Discharge: 06/27/24 Primary Care Physician: Dr. Daniele Sanchez MD Consultations 06/23/24 06:06 Consult: Hoist Mechanic / Pulmonary Medicine Routine Consulting Provider: Intensivists/Pulmonary Med Reason for Consult: ~1.6 cm x ~1.4 cm RLL spiculated lesion in previous smoker with COPD. EMERGENT Consult: No MD Notified: Yes Date Notified: 06/23/24 Time Notified: 06:44 Method of Notification: Answering Service Reason For Visit: COPD EXACERBATION Diagnosis Discharge Diagnosis (1) COPD exacerbation: Status: Chronic Code(s): J44.1 - Chronic obstructive pulmonary disease with (acute) exacerbation Plan 69-year-old female was directly admitted from [facility] for acute exacerbation of shortness of breath for 2 days , chest congestion, cannot bring up phlegm and wheezing. 1. AE COPD with CT positive for an ~1.6 cm x ~1.4 cm RLL spiculated opacity/nodule (previously ~2 cm x ~2 cm) - Admit to PCU. Charity Fundraiser consulted. Patient is being managed on scheduled bronchodilator, IV Solu-Medrol, Mucinex, incentive spirometry and Pep. She follows Dr. Eleno Crawford in the [place] as her nut packer. 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 IV Solu-Medrol frequency increased. Was seen by nut packer. Will need PET scan after discharge for further evaluation of 1.6 cm pulmonary nodule. 06/25: IV Solu-Medrol frequency changed to every 12 hourly. Continue bronchodilator. Patient is feeling better with nebulization delivery. 06/26: Patient was put back on IV Solu-Medrol 40 mg Q6 hourly. Rest seem to continue. 06/27 patient feels better after increased Solu-Medrol. Patient has nebulization equipment confirmed by showcase trimmer. Patient is discharged on long taper of prednisone starting 40 mg daily for 5 days, taper by 10 mg in 5 days. Mucinex DM prescription given. 2. Mild hypoxia with chronic emphysematous changes, bronchiectasis and pleural-parenchymal thickening with chronic hypoxic respiratory failure: CT chest from [place] [facility] reviewed. It also shows significant emphysematous changes lower lobe bronchiectasis. Mid biapical pleural-parenchymal thickening. There are 2 stable appearing lesion in right upper lobe and nodule in the left lower lobe less than a centimeter. History of chronic cigarette smoking. Quit 9 years ago. Used to smoke a pack per day. Started at the age of 19. Patient is on 4 L of oxygen, pulse ox 99%. 06/24: On 3 to 4 L of oxygen 06/25 oxygen requirement 3 to 4 L. 06/26: Continues to require 4 L of oxygen. 06/27: Patient is on Pulse ox 90% on room air at rest, 99% on 4 L of oxygen,, ambulating 92% on room air 99% on 4 L of oxygen. At home, patient is on 4 L oxygen continuous. I have reviewed the oxygen testing, and this patient qualifies for the home equipment and portability. The patient is mobile in the home and the community. Patient also has chronic anemia, microcytic, hypochromic probably iron versus anemia. Prescription given for ferrous sulfate and ascorbic acid. Follow-up with primary care. Does not have any acute GI bleed. 3. Essential hypertension - Maintain home regimen. On amlodipine 5 mg daily. Carvedilol 12.5 mg twice daily. 4. Hyperlipidemia - Resume statin as before. 5. CAD; s/p NSTEMI - Continue BASA as previous. 6. Listed allergy to Morphine/PCN and Sulfa - Avoid these classes of agent if possible. 7. History of COVID-19 - 8. GERD - Continue PPI. 9. RA - Chronic and stable with no evidence of acute flare at this time. 10. OA - Give Tylenol prn. 11. DVT prophylaxis - Lovenox 40 mg sq daily plus SCD's. Discharge medication reconciliation done. Discharge follow-up instructions completed. Discharge process discussed with the patient and all questions were answered to patient's satisfaction. Follow with PCP in 1 to 2 weeks Total time spent, exact 35 minutes on discharge meds reconciliation, examination, coordination of care with nurses and ancillary staff, review of imaging and blood test and discussion with the patient on follow-up instructions. Medications at Discharge Home Medications albuterol sulfate 2.5 mg/3 mL (0.083 %) solution for nebulization inhalation Q4H sob 11/27/21 lisinopril 40 mg tablet (Zestril) 40 mg PO DAILY blood pressure 11/27/21 aspirin 81 mg chewable tablet 81 mg PO BREAKFAST #30 tabs 11/28/21 amlodipine 5 mg tablet 5 mg PO DAILY 01/10/22 atorvastatin 40 mg tablet 40 mg PO QHS #30 tabs 01/10/22 carvedilol 6.25 mg tablet 12.5 mg PO BID 01/10/22 clopidogrel 75 mg tablet 75 mg PO DAILY #30 tabs 01/10/22 esomeprazole magnesium 20 mg capsule,delayed release (Nexium 24HR) 20 mg PO DAILY 01/10/22 nitroglycerin 0.4 mg sublingual tablet 0.4 mg sublingual Q5-15M PRN chest pain #25 tabs 01/10/22 ascorbic acid (vitamin C) 500 mg tablet 500 mg PO BID #60 tabs 06/27/24 dextromethorphan-guaifenesin ER 60 mg-1,200 mg tab,extend release,12hr 1 tab PO BID 7 days #14 tabs 06/27/24 ferrous sulfate 325 mg (65 mg iron) tablet (FeroSul) 325 mg PO QODAY #30 tabs 06/27/24 levofloxacin 750 mg tablet 750 mg PO DAILY@0600 1 day #1 TAB 06/27/24 prednisone 20 mg tablet See Rx Instructions .Route .COMPLEX #25 tabs 06/27/24 Physical Exam Narrative Seen and examined. With increased dose of IV Solu-Medrol, patient is feeling better. Had oxygen testing. Oxygen requirement decreased to 2 L/min. History of COPD, ex-smoker. Quit 9 years ago. Used to smoke a pack per day. Started at the age of 19. Physical exam General: Alert, Oriented x3, Cooperative. BMI 23.9 kg/m? HEENT: Atraumatic, PERRLA, EOMI, Normocephalic Oral: No Gingival or Mucosal Lesions/ Ulcerations Neck: Supple, No JVD, Negative Carotid Bruits Chest wall/Lungs: Air entry diminished in both lungs. Mild bilateral coarse rhonchi and wheezing Cardiovascular: Regular rate, Regular Rhythm, Normal S1, Normal S2, No M/G/R Abdomen: Bowel Sounds Present, Soft, Non Tender, Non-Distended : No dysuria. No renal angle tenderness. No suprapubic tenderness. Extremities: No edema, Capillary Refill Less than 3 Seconds Skin: No rashes, No breakdown Musculoskeletal: No Tenderness to Palpation of Joints or Extremities Neurological: Cranial nerves II-XII grossly intact, DTR 2+/4. No acute focal neurological deficit. Psych/Mental Status: Flat affect. Weight / BMI Weight Weight: 138 lb 14.259 oz Body Mass Index (BMI) 24.5 ABG / Lab / Microbiology Data 06/27/24 06:00 06/27/24 06:00 Laboratory: Laboratory Results - last 24 hr 06/27/24 06:00: WBC 9.9, RBC 4.13 L, Hgb 9.6 L, Hct 32.9 L, MCV 79.7 L, MCH 23.2 L, MCHC 29.2 L, RDW Std Deviation 67.5 H, RDW Coeff of Hernandez 24.5 H, Plt Count 235, MPV 11.5, Immature Gran % (Auto) 4.200 H, Neut % (Auto) 76.2 H, Lymph % (Auto) 12.2 L, [place]ell % (Auto) 7.2, Eos % (Auto) 0.0, Baso % (Auto) 0.2, Absolute Neuts (auto) 7.5, Absolute Lymphs (auto) 1.20, Nucleated RBC % 0.4, Differential Comment SCANNED, Anisocytosis 2+, Microcytosis 1+, Macrocytosis 1+, Sodium 135 L, Potassium 4.0, Chloride 97 L, Carbon Dioxide 34.0 H, Anion Gap 4 L, BUN 26 H, Creatinine 0.44 L, Estim Creat Clear Calc 60.18, Est GFR (MDRD) Af Amer 181, Est GFR (MDRD) Non-Af 150, BUN/Creatinine Ratio 58.7 H, Glucose 136 H, Calcium 9.3 Microbiology: Microbiology 06/23/24 06:00 Mucosa - Nasopharyngeal Respiratory Panel (PCR) - Final 06/23/24 06:00 Mucosa - Nasopharyngeal Coronavirus COVID-19 PCR - Final D/C Instructions Discharge Diet: Light diet - advance as tolerated and Low fat / Low cholesterol Weight Bearing Status: Weight bearing as tolerated Call your doctor if you observe: Fever of 101 or Higher, Coldness, Increased Pain, Numbness or Tingling, Change in Color, Inability to urinate, Inability to have a bowel movement, Shortness of breath, Dizziness, Fainting spells, Swelling in the ankles, Chest pain, Prolonged hiccupping, Increased palpitations (irregular heartbeat) and Calf discomfort When: IN 2 WEEKS Meaningful Use Info Meaningful Use Meaningful Use Diagnoses (Choose all that apply): None applicable Ischemic Stroke Statin Dosing Therapy Reference: STATIN DOSE THERAPY REFERENCE: * Patients > 75 years receive moderate or high dose statin therapy. * Patients 75 years or YOUNGER should receive HIGH intensity statin dose unless contraindicated. You will be required to document reason for non-treatment if statin daily dose does not meet guidelines. HIGH DOSE STATIN THERAPY DAILY Atorvastatin > than or = to 40 mg Rosuvastatin > than or = to 20 mg Amlodipine + Atorvastatin > than or = to 2.5/40 mg Ezetimibe + Simvastatin 10/80 mg Simvastatin 80mg Discharge Plan Admission Admit Date/Time: 06/23/24 04:55 Primary Reason for Your Visit: COPD exacerbation Attending Provider: Derek Patel Primary Care Provider: Daniele Sanchez Consulting Providers: Karlos Lopez Discharge Orders/Prescriptions Prescriptions: New dextromethorphan-guaifenesin 60-1,200 mg tablet extended release 12 hr 1 tab PO BID 7 Days Qty: 14 0RF ferrous sulfate [FeroSul] 325 mg (65 mg iron) Tablet 325 mg PO QODAY Qty: 30 2RF levofloxacin 750 mg Tablet 750 mg PO DAILY@0600 1 Days Qty: 1 0RF prednisone 20 mg tablet See Rx Instructions .ROUTE .COMPLEX Qty: 25 0RF Rx Instructions: 40 mg daily for 5 days, 30 mg for 5 days, 20 mg for 5 days and 10 mg FOR 5 days ascorbic acid (vitamin C) 500 mg tablet 500 mg PO BID Qty: 60 2RF Continued amlodipine 5 mg tablet 5 mg PO DAILY esomeprazole magnesium [Nexium 24HR] 20 mg capsule,delayed release(DR/EC) 20 mg PO DAILY atorvastatin 40 mg tablet 40 mg PO QHS Qty: 30 4RF clopidogrel 75 mg tablet 75 mg PO DAILY Qty: 30 6RF carvedilol 6.25 mg tablet 12.5 mg PO BID nitroglycerin 0.4 mg tablet, sublingual 0.4 mg sublingual Q5-15M PRN (Reason: chest pain) Qty: 25 1RF Rx Instructions: do not exceed 3 doses per episode albuterol sulfate 2.5 mg /3 mL (0.083 %) solution for nebulization inhalation Q4H Patient Comments: USE 1 VIAL IN NEBULIZER EVERY 4 TO 6 HOURS NEEDED FOR WHEEZING lisinopril [Zestril] 40 mg tablet 40 mg PO DAILY Patient Comments: TAKE 1 TABLET BY MOUTH ONCE DAILY aspirin 81 mg Tablet,Chewable 81 mg PO BREAKFAST Qty: 30 0RF Referrals / Follow Up: Daniele Sanchez MD [Primary Care Provider] - Within 2 Weeks Pj Mendoza DO [Med Staff - Active Staff] - Within 1 Month Jovanna Root NP, LEGAL BILLING COORDINATOR-C [Med Staff - Adv Practice Prof] - Within 2 Weeks Disposition Disposition (needs filled in before D/C Order can be placed): Home, Self Care Charges/Coding Visit Charges Inpatient E&M: 14717 Disch Hosp >30min
[2024-06-27] MEDS: Albuterol 2.5 MG/3 ML VIAL.NEB. INHALATION (15:02)
== END 2024-06-27 15:48 | disposition home or self-care (01) | DRG 191 ==
PROVIDERS: Admitting Provider Internal Medicine; PCP Family Medicine; Visit Provider Internal Medicine
DX: J44.1 Chronic obstructive pulmonary disease with (acute) exacerbation (principal); J96.11 Chronic respiratory failure with hypoxia; Z99.81 Dependence on supplemental oxygen; M06.9 Rheumatoid arthritis, unspecified; J47.9 Bronchiectasis, uncomplicated; I10 Essential (primary) hypertension; D50.9 Iron deficiency anemia, unspecified; E78.5 Hyperlipidemia, unspecified; I25.10 Atherosclerotic heart disease of native coronary artery without angina pectoris; J43.9 Emphysema, unspecified; K21.9 Gastro-esophageal reflux disease without esophagitis; J92.9 Pleural plaque without asbestos; I25.2 Old myocardial infarction; Z11.52 Encounter for screening for COVID-19; R91.1 Solitary pulmonary nodule; Z87.891 Personal history of nicotine dependence; Z86.16 Personal history of COVID-19
CPT/HCPCS: 36415; 80048; 80053; 83735; 84100; 84443; 85025; 87633; 87635; 94640; 94667; 94668; 97161; 97802; 99252; J7030; J7040; J7050; A4216; G0463; J2405; J2916